=== PATIENT | female | born 1935 | race Caucasian/White ===

== ENCOUNTER → 2019-01-13 | Outpatient (CLI) | payer MEDICARE, OTHER ==
--- NOTE | 2019-01-13 15:39 | RADIOLOGY REPORT (SQ) ---
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 LIMITATIONS: None. FINDINGS: AP CHEST: Pulmonary fibrosis slightly progressed when compared to prior study. No suspici ous bony findings. LATERAL SKULL: No worrisome bone lesions. AP BOTH HUMERI: No worrisome bone lesions. TWO-VIEW LUMBAR SPINE: No worrisome bone lesions. TWO-VIEW THORACIC SPINE: No worrisome bone lesions. AP PELVIS: No worrisome bone lesions. AP BOTH FEMURS: No worrisome bone lesions. OTHER: No other significant finding. IMPRESSION: NO WORRISOME BONE LESIONS. TECHNICAL DOCUMENTATION: JOB ID: [id number] [employer]- All Rights Reserved Reading location - IP/workstation name: [email or web address]
== END ==
LOC: RAD 15:00
PROVIDERS: ATTEND Internal Medicine Hematology & Oncology
DX: D47.2 Monoclonal gammopathy (principal)
CPT/HCPCS: 77075

== ENCOUNTER 2020-05-20 10:41 | Inpatient (IN) | payer MEDICARE, OTHER ==
--- NOTE | 2020-05-20 11:20 | RADIOLOGY REPORT (SQ) ---
EXAM DESCRIPTION: HIP LEFT AP/LATERAL IMAGES COMPLETED DATE/TIME: 05/20/2020 11:06 am REASON FOR STUDY: bed 8- altered s/p fall per dr lee COMPARISON: None. NUMBER OF VIEWS: Two views. TECHNIQUE: AP pelvis and additional lateralview of the left hip. LIMITATIONS: None. FINDINGS: MINERALIZATION: Osteopenia. LEFT HIP: Subcapital fracture with mild superior migration. RIGHT HIP: No fracture or dislocation. No worrisome bone lesions. Limited views. PUBIS AND ISCHIUM: No fracture. PELVIS: No fracture. SACRUM: No fracture or dislocation. No worrisome bone lesions. LOWER LUMBAR SPINE: No fracture or dislocation. No worrisome bone lesions. No significant disc disea se. SOFT TISSUES: No findings. OTHER: No other significant finding. IMPRESSION: Subcapital fracture of the left femoral neck. Mild superior migration. TECHNICAL DOCUMENTATION: JOB ID: [id number] 2010 [employer]- All Rights Reserved Reading location - IP/workstation name: [email or web address]
--- NOTE | 2020-05-20 11:22 | RADIOLOGY REPORT (SQ) ---
EXAM DESCRIPTION: CHEST SINGLE VIEW IMAGES COMPLETED DATE/TIME: 05/20/2020 11:05 am REASON FOR STUDY: bed 8 sepsis protocol COMPARISON: None. EXAM PARAMETERS: NUMBER OF VIEWS: One view. TECHNIQUE: Single frontal radiographic view of the chest acquired. RADIATION DOSE: NA LIMITATIONS: None. FINDINGS: LUNGS AND PLEURA: Extensive cystic opacity throughout the left lung. Left lung volume los s with surgical clips in the left hilum. Patchy opacities in the right lung. MEDIASTINUM AND HILAR STRUCTURES: No masses. Contour normal. HEART AND VASCULAR STRUCTURES: Heart normal in size. Normal vasculature. BONES: No acute findings. HARDWARE: None in the chest. OTHER: No other significant finding. IMPRESSION: Extensive cystic opacities in the left chest with prior surgery in the left lung. It is unclear whether there is been in partial pneumonectomy with extensive cystic infection, or whether t his fusion is an infectious process within the pleural space. Concerning for multiple small abscesses. TECHNICAL DOCUMENTATION: JOB ID: [id number] 2010 [employer]- All Rights Reserved Reading location - IP/workstation name: [email or web address]
--- NOTE | 2020-05-20 11:44 | RADIOLOGY REPORT (SQ) ---
EXAM DESCRIPTION: CT CERVICAL SPINE WITHOUT IMAGES COMPLETED DATE/TIME: 05/20/2020 11:16 am REASON FOR STUDY: bed 8- altered s/p fall per dr lee COMPARISON: None. TECHNIQUE: Axial images acquired through the cervical spine without intravenous contrast. Images re viewed with lung, soft tissue and bone windows. Reconstructed coronal and sagittal MPR images review ed. Images stored on PACS. All CT scanners at this facility use dose modulation, iterative reconstruction, and/or weight based d osing when appropriate to reduce radiation dose to as low as reasonably achievable (ALARA). [facility]: Dose Right [facility]: CareDose [facility]: Dose Right [facility]: Teradose 4D [facility]: Smart Total [employer]ersion RADIATION DOSE: CT Rad equipment meets quality standard of care and radiation dose reduction techniq ues were employed. CTDIvol: 7.4 mGy. DLP: 159 mGy-cm. mGy. LIMITATIONS: None. FINDINGS: ALIGNMENT: Anatomic. MINERALIZATION: Normal. VERTEBRAL BODIES: No fractures or dislocation. DISCS: Degenerative disc disease C5-6. FACETS, LATERAL MASSES, POSTERIOR ELEMENTS: No fractures. No dislocation. No acute findings. HARDWARE: None in the spine. VISUALIZED RIBS: No fractures. LUNG APICES AND SOFT TISSUES: Extensive opacities. OTHER: No other significant finding. IMPRESSION: Degenerative disc disease. No acute fracture. TECHNICAL DOCUMENTATION: JOB ID: [id number] Quality ID # [id number]: Final reports with documentation of one or more dose reduction techniques (e.g., Au tomated exposure control, adjustment of the mA and/or kV according to patient size, use of iterative reconstruction technique) 2010 [employer]- All Rights Reserved Reading location - IP/workstation name: [email or web address]
--- NOTE | 2020-05-20 11:54 | RADIOLOGY REPORT (SQ) ---
EXAM DESCRIPTION: FOOT LEFT COMPLETE IMAGES COMPLETED DATE/TIME: 05/20/2020 11:35 am REASON FOR STUDY: pain COMPARISON: None. NUMBER OF VIEWS: Three views. TECHNIQUE: AP, lateral and oblique radiographic images acquired of the left foot. LIMITATIONS: None. FINDINGS: MINERALIZATION: Osteopenia. BONES: No acute fracture or dislocation. No worrisome bone lesions. JOINTS: No effusions. SOFT TISSUES: No soft tissue swelling. No foreign body. OTHER: No other significant finding. IMPRESSION: NEGATIVE STUDY OF THE LEFT FOOT. NO RADIOGRAPHIC EVIDENCE OF ACUTE INJURY. TECHNICAL DOCUMENTATION: JOB ID: [id number] 2010 [employer]- All Rights Reserved Reading location - IP/workstation name: [email or web address]
--- NOTE | 2020-05-20 11:54 | RADIOLOGY REPORT (SQ) ---
EXAM DESCRIPTION: CT HEAD WITHOUT IMAGES COMPLETED DATE/TIME: 05/20/2020 11:17 am REASON FOR STUDY: bed 8- altered s/p fall per dr lee COMPARISON: None. TECHNIQUE: Axial images acquired through the brain without intravenous contrast. Images reviewed wi th bone, brain and subdural windows. Additional sagittal and coronal reconstructions were generated. Images stored on PACS. All CT scanners at this facility use dose modulation, iterative reconstruction, and/or weight based d osing when appropriate to reduce radiation dose to as low as reasonably achievable (ALARA). [facility]: Dose Right [facility]: CareDose [facility]: Dose Right [facility]: Teradose 4D [facility]: Smart [employer] RADIATION DOSE: CT Rad equipment meets quality standard of care and radiation dose reduction techniq ues were employed. CTDIvol: 53.2 mGy. DLP: 911 mGy-cm. mGy. LIMITATIONS: None. FINDINGS: VENTRICLES: Normal size and contour. CEREBRUM: No masses. No hemorrhage. No midline shift. No evidence for acute infarction. Normal gra y/white matter differentiation. No areas of low density in the white matter. CEREBELLUM: No masses. No hemorrhage. No alteration of density. No evidence for acute infarction. EXTRAAXIAL SPACES: No fluid collections. No masses. ORBITS AND GLOBE: No intra- or extraconal masses. Normal contour of globe without masses. CALVARIUM: No fracture. PARANASAL SINUSES: No fluid or mucosal thickening. SOFT TISSUES: No mass or hematoma. OTHER: No other significant finding. IMPRESSION: NORMAL BRAIN CT WITHOUT CONTRAST. EVIDENCE OF ACUTE STROKE: NO. COMMENT: Pertinent positive or negative findings of the imaging study reported as a CRITICAL EXAM t o ER PROVIDER at11:45 on 05/20/2020. Category of Critical Exam: Stroke alert Quality ID # [id number]: Final reports with documentation of one or more dose reduction techniques (e.g., Au tomated exposure control, adjustment of the mA and/or kV according to patient size, use of iterative reconstruction technique) TECHNICAL DOCUMENTATION: JOB ID: [id number] 2010 [employer]- All Rights Reserved Reading location - IP/workstation name: [email or web address]
--- NOTE | 2020-05-20 11:57 | RADIOLOGY REPORT (SQ) ---
EXAM DESCRIPTION: FOOT RIGHT COMPLETE IMAGES COMPLETED DATE/TIME: 05/20/2020 11:35 am REASON FOR STUDY: pain COMPARISON: None. NUMBER OF VIEWS: Three views. TECHNIQUE: AP, lateral and oblique radiographic images acquired of the right foot. LIMITATIONS: None. FINDINGS: MINERALIZATION: Osteopenia. BONES: No acute fracture or dislocation. No worrisome bone lesions. JOINTS: No effusions. SOFT TISSUES: No soft tissue swelling. No foreign body. OTHER: No other significant finding. IMPRESSION: NEGATIVE STUDY OF THE RIGHT FOOT. NO RADIOGRAPHIC EVIDENCE OF ACUTE INJURY. TECHNICAL DOCUMENTATION: JOB ID: [id number] 2010 [employer]- All Rights Reserved Reading location - IP/workstation name: [email or web address]
[2020-05-20] MEDS ORDERED: FENTANYL CITRATE INJ/PF 100 MCG/2 ML AMPUL IV ONE ×2 (12:09→12:56)
[2020-05-20 12:22] LABS: VENOUS BLOOD BASE EXCESS 6.4 mmol/L; VENOUS BLOOD HCO3 33.5 mmol/L (20-32); VENOUS BLOOD PH 7.36 (7.30-7.42)
--- NOTE | 2020-05-20 12:25 | ER Document Report ---
ED General - General Chief Complaint: Hip Pain Stated Complaint: ALTERED MENTAL STATUS Time Seen by Provider: 05/20/20 11:25 Notes: HPI: 84-year-old female with past medical history as recorded including bronchiectasis with left upper lobe lobectomy in 2006 who presents today after falling out of bed. was in another room and hold the fall. Patient was slightly confused after the fall repeating questions. Both she and the are not sure if the patient hit her head. She is on no blood thinning medications. She complains of pain only to her left hip. She denies specifically any headache, neck pain, anterior posterior rib pain, shortness of breath, abdominal pain, or pain to any other extremity. Patient is followed by corner cutter, Dr. Shipley, secondary to the bronchiectasis. She had an x-ray about 2 weeks ago when he started on an unknown antibiotic. Patient is on 4 L of oxygen at home. Patient and deny any increased cough or shortness of breath with no fevers recently. ROS: See HPI All other review of systems reviewed and otherwise negative Reviewed vital signs and nursing note as charted by RN. PHYSICAL EXAM: CONSTITUTIONAL: Alert and oriented and responds appropriately to questions. Patient is answering all questions appropriately at this time HEAD: Normocephalic; atraumatic EYES: PERRL; Conjunctivae clear, sclerae non-icteric ENT: Normal nose; no rhinorrhea; moist mucous membranes; pharynx without lesions noted NECK: Supple without meningismus; non-tender; no cervical lymphadenopathy, no masses CARD: Regular rate and rhythm; no murmurs; symmetric distal pulses RESP: Normal chest excursion without splinting or tachypnea; breath sounds clear and equal bilaterally; scattered rhonchi diffusely mostly to the upper lobe of the right lung ABD/GI: Normal bowel sounds; non-distended; soft, non-tender to palpation of all 4 quadrants of the abdomen BACK: The back appears normal and is non-tender to palpation along the midline spine EXT: Patient has some shortening of the left leg with little rotation externally. Strong pulses distally. Tenderness to the left anterior hip with no obvious swelling or erythema. No tenderness to the thigh, knee, tibia/fibula, ankle, or foot. Good pulses distally SKIN: No acute lesions noted NEURO: CN 2-12 intact; 5/5 bilateral upper and lower extremity strength excluding the left lower extremity PSYCH: The patient's mood and manner are appropriate. Grooming and personal hygiene are appropriate. TRAVEL OUTSIDE OF THE [place] IN LAST 30 DAYS: No - Related Data Allergies/Adverse Reactions: codeine Allergy (Verified 05/20/20 11:45) Past Medical History - Social History Smoking Status: Never Smoker Chew tobacco use (# tins/day): No Frequency of alcohol use: None Drug Abuse: None Family History: Reviewed & Not Pertinent Patient has homicidal ideation: No Physical Exam - Vital signs Vitals: Temp 98.0 F 05/20/20 10:42 Course - Re-evaluation Re-evalutation: Given the above history and physical, patient was taken to CT scan of the head, cervical spine, and an x-ray of the left hip was performed. Obvious fracture shown so an x-ray of the chest was added. Triage ordered bilateral foot x-rays. Patient has no pain to her feet. Patient has a history of bronchiectasis. No increased cough, fevers, or shortness of breath from baseline. Patient is currently oriented x4 at this time. 05/20/20 12:24 Labs are currently pending. I did discuss the case with the orthopedist power plant operations manager. We do have pulmonology power plant operations manager at this time as well. I am waiting for laboratory values before admission. 05/20/20 13:25 Labs and imaging as recorded. Elevated white blood cell count. Patient is on steroids. I called and spoke directly to a corner cutter power plant operations manager here Dr. Guajardo. I explained the full history and physical examination, white count, and read the x-ray report. He would like me to hold on a CT scan of the chest at this time until he sees the patient. Patient will be admitted to the hospitalist service. Marketing Pr Intern is comfortable consulting here. I have already spoken directly to the orthopedic surgeon and have placed a consult as well. - Vital Signs Vital signs: Temp Pulse Resp BP Pulse Ox 98.0 F 27 H 116/49 L 98 05/20/20 11:42 05/20/20 13:01 05/20/20 13:00 05/20/20 13:00 - Laboratory Result Diagrams: 05/20/20 12:00 05/20/20 12:00 Laboratory results interpreted by me: 05/20/20 05/20/20 05/20/20 11:00 12:00 12:00 WBC 26.8 H Hgb 9.9 L Hct 31.9 L MCH 25.7 L MCHC 31.1 L RDW 17.0 H Plt Count 540 H Band Neutrophils % 2 L Lymphocytes % (Manual) 12 L Abs Neuts (Manual) 20.6 H Abs Monocytes (Manual) 2.7 H VBG HCO3 33.5 H Carbon Dioxide 32 H Anion Gap 4 L BUN 21 H AST 41 H Albumin 3.1 L Urine Ascorbic Acid 05/20/20 13:06 WBC Hgb Hct MCH MCHC RDW Plt Count Band Neutrophils % Lymphocytes % (Manual) Abs Neuts (Manual) Abs Monocytes (Manual) VBG HCO3 Carbon Dioxide Anion Gap BUN AST Albumin Urine Ascorbic Acid 40 H Discharge - Discharge Clinical Impression: Left displaced femoral neck fracture Accidental fall from bed Qualifiers: Encounter type: initial encounter Qualified Code(s): W06.XXXA - Fall from bed, initial encounter Bronchiectasis Qualifiers: Bronchiectasis type: uncomplicated Qualified Code(s): J47.9 - Bronchiectasis, uncomplicated Leukocytosis Qualifiers: Leukocytosis type: unspecified Qualified Code(s): D72.829 - Elevated white blood cell count, unspecified Condition: Fair Disposition: ADMITTED INPATIENT Admitting Provider: Bayron (Hospitalist) Unit Admitted: Medical Floor
[2020-05-20 12:34] LABS: PROTHROMBIN TIME 14.4 SEC (11.4-15.4)
[2020-05-20 12:42] LABS: ALBUMIN 3.1 g/dL (3.5-5.0); ALKALINE PHOSPHATASE 106 U/L (38-126); ASPARTATE AMINO TRANSFERASE 41 U/L (14-36); BILIRUBIN,DIRECT 0.3 mg/dL (0.0-0.4); BILIRUBIN,TOTAL 0.5 mg/dL (0.2-1.3); BLOOD UREA NITROGEN 21 mg/dL (7-20); CALCIUM 8.6 mg/dL (8.4-10.2); CARBON DIOXIDE 32 mmol/L (22-30); CHLORIDE 101 mmol/L (98-107); GLUCOSE 93 mg/dL (75-110); POTASSIUM 3.9 mmol/L (3.6-5.0); TOTAL PROTEIN 6.7 g/dL (6.3-8.2)
[2020-05-20 12:43] LABS: ANION GAP 4 (5-19)
[2020-05-20 12:47] LABS: HEMATOCRIT 31.9 % (36.0-47.0); HEMOGLOBIN 9.9 g/dL (12.0-15.5); MEAN CORPUSCULAR HEMOGLOBIN 25.7 pg (27.0-33.4); MEAN CORPUSCULAR HGB CONC 31.1 g/dL (32.0-36.0); MEAN CORPUSCULAR VOLUME 83 fl (80-97); PLATELET COUNT 540 10^3/uL (150-450); RED BLOOD COUNT 3.84 10^6/uL (3.72-5.28); WHITE BLOOD COUNT 26.8 10^3/uL (4.0-10.5)
[2020-05-20 13:14] LABS: ABSOLUTE LYMPHOCYTES# (MANUAL) 3.2 10^3/uL (0.5-4.7); ABSOLUTE MONOCYTES # (MANUAL) 2.7 10^3/uL (0.1-1.4); BAND NEUTROPHILS % (MANUAL) 2 % (3-5); BASOPHILS % (MANUAL) 0 % (0-2); EOSINOPHILS % (MANUAL) 1 % (0-6); LYMPHOCYTES % (MANUAL) 12 % (13-45); METAMYELOCYTES % (MANUAL) 1 % (0-1); MONOCYTES % (MANUAL) 10 % (3-13); SEGMENTED NEUTROPHILS % (MAN) 74 % (42-78); TOTAL CELLS COUNTED 100
[2020-05-20 13:15] LABS: ANISOCYTOSIS 1+; OVALOCYTES SLIGHT; PLATELET COMMENT ADEQUATE
[2020-05-20 13:43] LABS: APPEARANCE,URINE CLEAR; BILIRUBIN,URINE NEGATIVE (NEGATIVE); COLOR,URINE YELLOW; GLUCOSE, URINE NEGATIVE (NEGATIVE); KETONES,URINE NEGATIVE (NEGATIVE); PROTEIN,URINE NEGATIVE (NEGATIVE); UROBILINOGEN,URINE NEGATIVE mg/dL (<2.0)
[2020-05-20] MEDS ORDERED: DEXTROSE 50%-WATER 25 GM/50 ML DISP.SYRIN IV PRN ×2 (18:15)
[2020-05-20] MEDS ORDERED: GLUCAGON,HUMAN RECOMB 1 MG INJ SUBCUT PRN (18:15)
[2020-05-20] MEDS ORDERED: DEXTROSE 40% GEL 15 GM TUBE PO PRN ×2 (18:15)
[2020-05-20] MEDS ORDERED: HYDROMORPHONE HCL INJ/PF 2 MG/ML AMPULE IV PRN (19:23)
[2020-05-20] MEDS ORDERED: TRAMADOL HCL 50 MG TABLET PO PRN (19:24)
[2020-05-20] MEDS ORDERED: ACETAMINOPHEN 325 MG TABLET PO PRN (19:30)
[2020-05-20] MEDS ORDERED: OXYCODONE-ACETAMINOPHEN 5-325 MG TABLET PO PRN (19:30)
[2020-05-20] MEDS ORDERED: ONDANSETRON HCL INJ/PF 4 MG/2 ML SDV IV PRN (19:30)
[2020-05-20] MEDS ORDERED: MORPHINE SULFATE 10 MG/ML INJ IV PRN (19:30)
[2020-05-20] MEDS ORDERED: IPRATROPIUM/ALBUTEROL 0.5-2.5 MG/3 ML AMPUL NEB PRN (19:30)
[2020-05-20] MEDS ORDERED: ONDANSETRON 4 MG TAB.RAPDIS PO PRN (19:30)
--- NOTE | 2020-05-20 20:24 | EKG REPORT ---
SEVERITY:- ABNORMAL ECG - SINUS RHYTHM MULTIPLE ATRIAL PREMATURE COMPLEXES NONSPECIFIC T ABNORMALITIES, ANT-LAT LEADS : Confirmed by: Azucena Morton 20-May-2020 20:23:04
[2020-05-20] MEDS ORDERED: HYDROCORTISONE SOD SUCCINATE INJ/PF 100 MG/2 ML SDV IV PRN (21:00)
--- NOTE | 2020-05-20 21:10 | PDOC H&P ---
History of Present Illness Admission Date/PCP: 05/20/20 14:24 History of Present Illness: QUETA RAJAN is a 84 year old female with past medical history significant for chronic bronchiectasis followed by Dr. Beltran in pulmonology who presents with a 1 day history of severe left hip pain after she tried to get out of bed and tripped, falling onto her left hip and causing a left femoral neck fracture as seen on x-ray on admission. Patient was brought to ED by EMS and was evaluat ed by orthopedic surgery. They requested admission to medicine service and are planning surgery fix fractured hip on 05/21. Patient is n.p.o. after midnight. Pulmonology was consulted by ED anesthesia was also notified of the complicated nature of the patient's pulmonary disease. All services in agreement that patient can proceed with surgery as benefits of surgery outweigh the risk. Patient is on 10 mg prednisone daily for her bronchiectasis and will provide 50 mg hydrocortisone preoperatively in order to provide appropriate stress response to surgery. Past Medical History Cardiac Medical History: Reports: None Pulmonary Medical History: Reports: Other - Bronchiectasis Psychiatric Medical History: Denies: Depression Past Surgical History Past Surgical History: Reports: Cholecystectomy Social History Information Source: Patient, Emergency Med Personnel Smoking Status: Never Smoker Electronic Cigarette use?: No Frequency of Alcohol Use: None Hx Recreational Drug Use: No Drugs: None Hx Prescription Drug Abuse: No - Advance Directive Resuscitation Status: Full Code Surrogate healthcare decision maker:: Family History Family History: Reviewed & Not Pertinent, Other - Chronic ectasis Parental Family History Reviewed: Yes Children Family History Reviewed: Yes Sibling(s) Family History Reviewed.: Yes Medication/Allergy Home Medications: Albuterol Sulfate [Ventolin 0.083% Neb 2.5 mg/3 ml Ampul] 1 vial NEB BID 05/20/20 Albuterol Sulfate [Ventolin Hfa 8 gm Mdi] 1 puff IH QID 05/20/20 Amitriptyline HCl [Elavil 50 Mg Tablet] 50 mg PO QHS 05/20/20 Dronabinol [Marinol 2.5 mg Capsule] 2.5 mg PO DAILY 05/20/20 Fluticasone/Salmeterol [Advair 250-50 Diskus 14 Dose/Diskus] 2 inh IH Q12 05/20/20 Levofloxacin [Levaquin 500 mg Tablet] 500 mg PO DAILY 05/20/20 Lubiprostone [Amitiza 24 Mcg Capsule] 24 mcg PO BID 05/20/20 Omeprazole 20 mg PO DAILY 05/20/20 Prednisone 10 mg PO DAILY 05/20/20 Allergies/Adverse Reactions: codeine Allergy (Verified 05/20/20 11:45) Review of Systems All systems: reviewed and no additional remarkable complaints except as stated - Review of systems per HPI, otherwise negative Physical Exam Vital Signs: Temp Pulse Resp BP Pulse Ox 97.8 F 108 H 26 H 128/51 H 87 L 05/20/20 17:47 05/20/20 17:56 05/20/20 17:56 05/20/20 17:56 05/20/20 17:56 Intake & Output 05/19/20 05/20/20 05/21/20 06:59 06:59 06:59 Intake Total 480 Output Total 300 Balance 180 Weight 50.1 kg General appearance: PRESENT: no acute distress, well-developed, well-nourished Head exam: PRESENT: atraumatic, normocephalic Eye exam: PRESENT: conjunctiva pink Mouth exam: PRESENT: moist Respiratory exam: PRESENT: rales - Very fine rales consistent with bronchiectasis primarily on the left, unlabored. ABSENT: accessory muscle use, chest wall tenderness, crackles, rhonchi, wheezes Cardiovascular exam: PRESENT: RRR. ABSENT: diastolic murmur, rubs, systolic murmur GI/Abdominal exam: PRESENT: normal bowel sounds, soft. ABSENT: distended, guarding, mass, organolmegaly, rebound, tenderness Neurological exam: PRESENT: alert, awake, oriented to person, oriented to place, oriented to time, oriented to situation Psychiatric exam: PRESENT: appropriate affect, normal mood Skin exam: PRESENT: dry, intact, warm Results Laboratory Results: 05/20/20 12:00 05/20/20 12:00 05/20/20 05/20/20 05/20/20 11:00 11:00 12:00 WBC 26.8 H RBC 3.84 Hgb 9.9 L Hct 31.9 L MCV 83 MCH 25.7 L MCHC 31.1 L RDW 17.0 H Plt Count 540 H Seg Neutrophils % Not Reportable VBG pH 7.36 VBG pCO2 61.0 VBG HCO3 33.5 H VBG Base Excess 6.4 Sodium Potassium Chloride Carbon Dioxide Anion Gap BUN Creatinine Est GFR ( Amer) Glucose Lactic Acid 1.2 Calcium Total Bilirubin AST Alkaline Phosphatase Total Protein Albumin Urine Color Urine Appearance Urine pH Ur Specific [place] Urine Protein Urine Glucose (UA) Urine Ketones Urine Blood Urine RBC (Auto) 05/20/20 05/20/20 05/20/20 12:00 13:06 14:16 WBC RBC Hgb Hct MCV MCH MCHC RDW Plt Count Seg Neutrophils % VBG pH VBG pCO2 VBG HCO3 VBG Base Excess Sodium 137.4 Potassium 3.9 Chloride 101 Carbon Dioxide 32 H Anion Gap 4 L BUN 21 H Creatinine 0.55 Est GFR ( Amer) > 60 Glucose 93 Lactic Acid 0.9 Calcium 8.6 Total Bilirubin 0.5 AST 41 H Alkaline Phosphatase 106 Total Protein 6.7 Albumin 3.1 L Urine Color YELLOW Urine Appearance CLEAR Urine pH 6.0 Ur Specific [place] 1.020 Urine Protein NEGATIVE Urine Glucose (UA) NEGATIVE Urine Ketones NEGATIVE Urine Blood NEGATIVE Urine RBC (Auto) 1 05/20/20 17:59 WBC RBC Hgb Hct MCV MCH MCHC RDW Plt Count Seg Neutrophils % VBG pH VBG pCO2 VBG HCO3 VBG Base Excess Sodium Potassium Chloride Carbon Dioxide Anion Gap BUN Creatinine Est GFR ( Amer) Glucose Lactic Acid 1.1 Calcium Total Bilirubin AST Alkaline Phosphatase Total Protein Albumin Urine Color Urine Appearance Urine pH Ur Specific [place] Urine Protein Urine Glucose (UA) Urine Ketones Urine Blood Urine RBC (Auto) 05/20/20 11:00 Troponin I < 0.012 Impressions: Cervical Spine CT 05/20/20 00:00 IMPRESSION: Degenerative disc disease. No acute fracture. Foot X-Ray 05/20/20 00:00 IMPRESSION: NEGATIVE STUDY OF THE RIGHT FOOT. NO RADIOGRAPHIC EVIDENCE OF ACUTE INJURY. Head CT 05/20/20 00:00 IMPRESSION: NORMAL BRAIN CT WITHOUT CONTRAST. EVIDENCE OF ACUTE STROKE: NO. Hip X-Ray 05/20/20 00:00 IMPRESSION: Subcapital fracture of the left femoral neck. Mild superior migration. Chest X-Ray 05/20/20 10:45 IMPRESSION: Extensive cystic opacities in the left chest with prior surgery in the left lung. It is unclear whether there is been in partial pneumonectomy with extensive cystic infection, or whether this fusion is an infectious process within the pleural space. Concerning for multiple small abscesses. Assessment and Plan - Diagnosis (1) Left displaced femoral neck fracture Is this a current diagnosis for this admission?: Yes Plan: Orthopedic surgery consulted on admission, planning surgery on 05/21, n.p.o. at midnight Pain management DVT prophylaxis PT/OT (2) Chronic hypoxemic respiratory failure Is this a current diagnosis for this admission?: Yes Plan: Chronically on 4 L nasal cannula at home Continue with supplemental oxygen here with goal 92% or greater (3) Chronic steroid use Is this a current diagnosis for this admission?: Yes Plan: On chronic 10 mg prednisone daily Provide 50 mg hydrocortisone preoperatively for adequate stress response of surgery (4) Accidental fall from bed Qualifiers: Encounter type: initial encounter Qualified Code(s): W06.XXXA - Fall from bed, initial encounter Is this a current diagnosis for this admission?: Yes Plan: As above Multiple imaging modalities reviewed, CT chest ordered to better characterize lesions in the lung given patient has severe left-sided crackles, unclear if chronic, chest x-ray concerning for possible abscesses on the left as well CT chest without contrast (5) Bronchiectasis Qualifiers: Bronchiectasis type: uncomplicated Qualified Code(s): J47.9 - Bronchiectasis, uncomplicated Is this a current diagnosis for this admission?: Yes Plan: 4 L nasal cannula chronically Follows with Dr. Beltran in pulmonology - Time Time Spent with patient: 35 or more minutes Medications reviewed and adjusted accordingly: Yes Anticipated Discharge Disposition: Senior Living Facility Anticipated Discharge Timeframe: within 72 hours - Inpatient Certification Based on my medical assessment, after consideration of the patient's comorbidities, presenting symptoms, or acuity I expect that the services needed warrant INPATIENT care.: Yes I certify that my determination is in accordance with my understanding of Medicare's requirements for reasonable and necessary INPATIENT services [42 CFR 412.3e].: Yes Medical Necessity: Significant Comorbidiites Make Outpatient Treatment Too Risky, Need Close Monitoring Due to Risk of Patient Decompensation, Need for Pain Control, Risk of Complication if Not Cared For in Hospital, Risk of Diagnosis Which Will Require Inpatient Eval/Care/Monitoring
--- NOTE | 2020-05-20 21:11 | ADVANCED CARE ---
- Diagnosis (1) Left displaced femoral neck fracture Diagnosis Current: Yes (2) Chronic hypoxemic respiratory failure Diagnosis Current: Yes (3) Chronic steroid use Diagnosis Current: Yes (4) Accidental fall from bed Diagnosis Current: Yes (5) Bronchiectasis Diagnosis Current: Yes Attendance: Patient Resuscitation Status: Full Code Discussion: All aspects of code status discussed with patient/POA including cardioversion, chest compressions, and intubation and the patient/POA indicated they wish to be full code MPOA is designated as: Time Spent: Greater than 16 minutes
[2020-05-20] MEDS: OXYCODONE HCL IR 5 MG TABLET PO PRN (21:25)
[2020-05-20] MEDS: AMITRIPTYLINE HCL 50 MG TABLET PO SCH (21:26)
[2020-05-20] MEDS ORDERED: ALBUTEROL SULFATE HFA (90 MCG/PUFF) 8 GM MDI IH ONE (21:54)
[2020-05-20] MEDS: ALBUTEROL SULFATE HFA (90 MCG/PUFF) 8 GM MDI IH SCH (22:09)
[2020-05-20] MEDS: HYDROMORPHONE HCL INJ/PF 2 MG/ML AMPULE IV PRN (23:05)
--- NOTE | 2020-05-21 03:25 | RADIOLOGY REPORT (SQ) ---
CT CHEST WITHOUT INTRAVENOUS CONTRAST: 05/21/2020 2:20 AM CDT HISTORY: 84-year old patient with abnormal breath sounds. COMPARISON: None available TECHNIQUE: Serial 3 mm axial images were obtained from above the thoracic inlet to the upper abdomen without intravenous contrast administered. Sagittal and coronal reconstructions were also obtained and reviewed. This exam was performed according to our departmental dose-optimization program, which includes automated exposure control, adjustment of the mA and/or KV according to the patient's size and/or use of iterative reconstruction technique. FINDINGS: Both lobes of the thyroid appear homogenous with no suspicious nodules identified. The thoracic aorta is normal in size. The main pulmonary artery is enlarged and measures at least 3.1 cm in transverse dimension. The heart is mildly prominent in size. There is no evidence of a pericardial effusion. There is significant volume loss within the left hemithorax with lucencies. This may be secondary to severe fibrosis. The cardiomediastinal silhouette is deviated to the left side. Within the right hemithorax, there are peripheral groundglass airspace opacities which appear nodular. There are also consolidative airspace opacities at the posterior right upper lobe and within the superior segment of the right lower lobe. These are concerning for infection. There is bronchiectasis within the left hemithorax. No discrete pleural effusion is seen. There is suggestion of a trace left basilar pneumothorax. This could be chronic as there is some adjacent pleural thickening. The central tracheobronchial tree is patent. No suspicious lung nodules are identified. No significant supraclavicular, axillary, or mediastinal lymphadenopathy is identified. Evaluation of the upper abdomen is limited by the lack of intravenous contrast. No gross abnormality seen at the upper abdomen. The gallbladder appears to be surgically absent. Review of the bone show no evidence of any suspicious lytic or blastic lesions. IMPRESSION: There is volume loss and fibrotic change noted within the left hemithorax. A superimposed infection would be difficult to exclude. There is also bronchiectasis present. There may be a trace left basilar pneumothorax which could be chronic. There are airspace opacities within the right hemithorax which are concerning for infection. Interval follow-up is recommended to exclude an underlying neoplasm. There are some chronic interstitial changes developing within the background bilaterally, left greater than right. The main pulmonary artery is enlarged, which can be seen with pulmonary artery hypertension.
[2020-05-21] MEDS: HYDROMORPHONE HCL INJ/PF 2 MG/ML AMPULE IV PRN (06:06)
[2020-05-21] MEDS: PANTOPRAZOLE SODIUM 20 MG TABLET.DR PO SCH (06:11)
[2020-05-21] MEDS: OXYCODONE HCL IR 5 MG TABLET PO PRN ×2 (06:14→18:52)
[2020-05-21 06:17] LABS: HEMATOCRIT 33.5 % (36.0-47.0); HEMOGLOBIN 10.7 g/dL (12.0-15.5); MEAN CORPUSCULAR HEMOGLOBIN 26.6 pg (27.0-33.4); MEAN CORPUSCULAR VOLUME 83 fl (80-97); PLATELET COUNT 465 10^3/uL (150-450); RED BLOOD COUNT 4.04 10^6/uL (3.72-5.28); RED CELL DISTRIBUTION WIDTH 16.7 % (11.5-14.0)
[2020-05-21 06:46] LABS: ANION GAP 8 (5-19); BLOOD UREA NITROGEN 26 mg/dL (7-20); CARBON DIOXIDE 33 mmol/L (22-30); CHLORIDE 96 mmol/L (98-107); GLUCOSE 91 mg/dL (75-110); PHOSPHORUS 3.9 mg/dL (2.5-4.5); POTASSIUM 4.2 mmol/L (3.6-5.0)
[2020-05-21 07:08] LABS: ABSOLUTE LYMPHOCYTES# (MANUAL) 3.5 10^3/uL (0.5-4.7); ABSOLUTE MONOCYTES # (MANUAL) 5.4 10^3/uL (0.1-1.4); BAND NEUTROPHILS % (MANUAL) 1 % (3-5); BASOPHILS % (MANUAL) 0 % (0-2); EOSINOPHILS % (MANUAL) 1 % (0-6); LYMPHOCYTES % (MANUAL) 9 % (13-45); MONOCYTES % (MANUAL) 14 % (3-13); SEGMENTED NEUTROPHILS % (MAN) 75 % (42-78); TOTAL CELLS COUNTED 100
[2020-05-21 07:09] LABS: ANISOCYTOSIS 1+; HYPOCHROMASIA SLIGHT; PLATELET COMMENT INCREASED
[2020-05-21 07:10] LABS: OVALOCYTES 1+; SCHISTOCYTES SLIGHT
[2020-05-21 07:18] LABS: WHITE BLOOD COUNT 38.6 10^3/uL (4.0-10.5)
[2020-05-21] MEDS: ALBUTEROL SULFATE 0.083% NEB 2.5 MG/3 ML AMPUL NEB SCH ×2 (07:38→21:03)
[2020-05-21] MEDS ORDERED: CEFTRIAXONE 2 GM/D5W RTU 2 GM/50 ML RTUPB IV ONE (08:54)
[2020-05-21 09:02] LABS: ARTERIAL BLOOD BASE EXCESS 4.2 mmol/L; ARTERIAL BLOOD PCO2 49.7 mmHg (35-45); ARTERIAL BLOOD PO2 60.7 mmHg (80-100); ARTERIAL BLOOD TOTAL CO2 31.5 mmol/L (21-25)
[2020-05-21 09:06] LABS: ARTERIAL BLOOD FIO2 10L
[2020-05-21] MEDS: PREDNISONE 10 MG TABLET PO SCH (09:06)
[2020-05-21] MEDS: LUBIPROSTONE 24 MCG CAPSULE PO SCH ×2 (09:06→17:08)
[2020-05-21] MEDS: DRONABINOL 2.5 MG CAPSULE PO SCH (09:06)
[2020-05-21] MEDS: ALBUTEROL SULFATE HFA (90 MCG/PUFF) 8 GM MDI IH SCH ×4 (09:12→21:40)
[2020-05-21] MEDS: FLUTICASONE/VILANTEROL 200-25 MCG/DOSE IH SCH (09:12)
[2020-05-21] MEDS ORDERED: DOCUSATE SODIUM 100 MG/10 ML UDC PO SCH (10:00)
[2020-05-21] MEDS ORDERED: AZITHROMYCIN INJ 500 MG VIAL IV SCH (10:00)
[2020-05-21] MEDS ORDERED: AZITHROMYCIN 500 MG in DEXTROSE 5%-WATER 250 ML IV SCH (11:00)
--- NOTE | 2020-05-21 12:07 | PDOC CONSULTATION ---
Consultation Consult Date: 05/21/20 Provider Consulted: ADRIENNE JEREZ History of Present Illness Admission Date/PCP: 05/20/20 14:24 Patient complains of: Shortness of breath History of Present Illness: QUETA RAJAN is a 84 year old female Who presents after left hip fracture. Her states that he heard her fall in the bedroom. Her beside the bed. It is unclear whether she tripped or became lightheaded upon standing from the lying position. In any event she was brought to the emergency room where a left ulna neck fracture was noted. She has a long and significant history of bronchiectasis. She is chronically followed by Dr. Shipley in [place]. According to the she intermittently takes antibiotics as well as prednisone with exacerbations of her bronchiectasis. She also has had a left lower lobe lobectomy many years ago for a nonfunctioning left lower lung felt secondary to chronic bronchiectasis. The is unsure if she has had a recent pseudomonal infection. She denies any recent fevers or chills. She was recently started on both prednisone and Levaquin because of a recent exacerbation of her bronchiectasis. This was primarily characterized by increasing cough and sputum production. Past Medical History Past Medical History: Patient denies a significant history of cigarette smoking. She does have a longstanding history of bronchiectasis as noted above. She did recently have increasing cough and mucus production. Apparently her mother also had significant pulmonary dysfunction and was not a cigarette smoker. Cardiac Medical History: Reports: None Pulmonary Medical History: Reports: Other - Bronchiectasis Psychiatric Medical History: Denies: Depression Past Surgical History Past Surgical History: The patient has had a prior left lower lobectomy. Past Surgical History: Reports: Cholecystectomy Social History Smoking Status: Never Smoker - The patient is a non-smoker and has no occupational exposure. Frequency of Alcohol Use: None Hx Recreational Drug Use: No Drugs: None Hx Prescription Drug Abuse: No - Advance Directive Resuscitation Status: Full Code Family History Family History: Reviewed & Not Pertinent, Other - Chronic ectasis Parental Family History Reviewed: Yes - The patient's mother had a significant history of pulmonary disease felt to Children Family History Reviewed: No Sibling(s) Family History Reviewed.: No Medication/Allergy Home Medications: Albuterol Sulfate [Ventolin 0.083% Neb 2.5 mg/3 ml Ampul] 1 vial NEB BID 05/20/20 Albuterol Sulfate [Ventolin Hfa 8 gm Mdi] 1 puff IH QID 05/20/20 Amitriptyline HCl [Elavil 50 Mg Tablet] 50 mg PO QHS 05/20/20 Dronabinol [Marinol 2.5 mg Capsule] 2.5 mg PO DAILY 05/20/20 Fluticasone/Salmeterol [Advair 250-50 Diskus 14 Dose/Diskus] 2 inh IH Q12 05/20/20 Levofloxacin [Levaquin 500 mg Tablet] 500 mg PO DAILY 05/20/20 Lubiprostone [Amitiza 24 Mcg Capsule] 24 mcg PO BID 05/20/20 Omeprazole 20 mg PO DAILY 05/20/20 Prednisone 10 mg PO DAILY 05/20/20 Allergies/Adverse Reactions: codeine Allergy (Verified 05/20/20 11:45) Review of Systems All systems: reviewed and no additional remarkable complaints except as stated - As noted above the patient recently noted cough and mucus production. Remainder is negative. Physical Exam Vital Signs: Temp Pulse Resp BP Pulse Ox 97.9 F 110 H 20 111/44 L 94 05/21/20 07:35 05/21/20 07:39 05/21/20 07:39 05/21/20 07:26 05/21/20 07:39 Intake & Output 05/20/20 05/21/20 05/22/20 06:59 06:59 06:59 Intake Total 480 Output Total 500 Balance -20 Weight 46.2 kg Exam: On exam today she was seen in bed lying flat with high flow oxygen by mask. She appeared to be pale. Conjunctiva were pale. Extraocular movements appear to be intact. Neck was supple without adenopathy or bruits. Lung exam revealed diffuse rhonchi more prominent on the left otherwise negative. Heart exam revealed a tachycardia without obvious murmur. Abdominal exam was nondistended and nontender. Extremities were not examined because of her hip fracture. Neurologic examination was difficult because of recent narcotic medication given to the patient for pain relief. Results Laboratory Results: 05/21/20 05:17 05/21/20 05:17 05/20/20 05/20/20 05/20/20 11:00 11:00 12:00 WBC 26.8 H RBC 3.84 Hgb 9.9 L Hct 31.9 L MCV 83 MCH 25.7 L MCHC 31.1 L RDW 17.0 H Plt Count 540 H Seg Neutrophils % Not Reportable Carbonic Acid HCO3/H2CO3 Ratio ABG pH ABG pCO2 ABG pO2 ABG HCO3 ABG O2 Saturation ABG Base Excess VBG pH 7.36 VBG pCO2 61.0 VBG HCO3 33.5 H VBG Base Excess 6.4 FiO2 Sodium Potassium Chloride Carbon Dioxide Anion Gap BUN Creatinine Est GFR ( Amer) Glucose Lactic Acid 1.2 Calcium Phosphorus Magnesium Total Bilirubin AST Alkaline Phosphatase Total Protein Albumin Urine Color Urine Appearance Urine pH Ur Specific [place] Urine Protein Urine Glucose (UA) Urine Ketones Urine Blood Urine RBC (Auto) 05/20/20 05/20/20 05/20/20 12:00 13:06 14:16 WBC RBC Hgb Hct MCV MCH MCHC RDW Plt Count Seg Neutrophils % Carbonic Acid HCO3/H2CO3 Ratio ABG pH ABG pCO2 ABG pO2 ABG HCO3 ABG O2 Saturation ABG Base Excess VBG pH VBG pCO2 VBG HCO3 VBG Base Excess FiO2 Sodium 137.4 Potassium 3.9 Chloride 101 Carbon Dioxide 32 H Anion Gap 4 L BUN 21 H Creatinine 0.55 Est GFR ( Amer) > 60 Glucose 93 Lactic Acid 0.9 Calcium 8.6 Phosphorus Magnesium Total Bilirubin 0.5 AST 41 H Alkaline Phosphatase 106 Total Protein 6.7 Albumin 3.1 L Urine Color YELLOW Urine Appearance CLEAR Urine pH 6.0 Ur Specific [place] 1.020 Urine Protein NEGATIVE Urine Glucose (UA) NEGATIVE Urine Ketones NEGATIVE Urine Blood NEGATIVE Urine RBC (Auto) 1 05/20/20 05/21/20 05/21/20 17:59 05:17 05:17 WBC 38.6 H* RBC 4.04 Hgb 10.7 L Hct 33.5 L MCV 83 MCH 26.6 L MCHC 32.0 RDW 16.7 H Plt Count 465 H Seg Neutrophils % Not Reportable Carbonic Acid HCO3/H2CO3 Ratio ABG pH ABG pCO2 ABG pO2 ABG HCO3 ABG O2 Saturation ABG Base Excess VBG pH VBG pCO2 VBG HCO3 VBG Base Excess FiO2 Sodium 137.1 Potassium 4.2 Chloride 96 L Carbon Dioxide 33 H Anion Gap 8 BUN 26 H Creatinine 0.65 Est GFR ( Amer) > 60 Glucose 91 Lactic Acid 1.1 Calcium 9.0 Phosphorus 3.9 Magnesium 1.9 Total Bilirubin AST Alkaline Phosphatase Total Protein Albumin Urine Color Urine Appearance Urine pH Ur Specific [place] Urine Protein Urine Glucose (UA) Urine Ketones Urine Blood Urine RBC (Auto) 05/21/20 08:40 WBC RBC Hgb Hct MCV MCH MCHC RDW Plt Count Seg Neutrophils % Carbonic Acid 1.50 H HCO3/H2CO3 Ratio 20:1 ABG pH 7.40 ABG pCO2 49.7 H ABG pO2 60.7 L ABG HCO3 30.0 H ABG O2 Saturation 91.0 L ABG Base Excess 4.2 VBG pH VBG pCO2 VBG HCO3 VBG Base Excess FiO2 10L Sodium Potassium Chloride Carbon Dioxide Anion Gap BUN Creatinine Est GFR ( Amer) Glucose Lactic Acid Calcium Phosphorus Magnesium Total Bilirubin AST Alkaline Phosphatase Total Protein Albumin Urine Color Urine Appearance Urine pH Ur Specific [place] Urine Protein Urine Glucose (UA) Urine Ketones Urine Blood Urine RBC (Auto) 05/20/20 11:00 Troponin I < 0.012 Impressions: Cervical Spine CT 05/20/20 00:00 IMPRESSION: Degenerative disc disease. No acute fracture. Chest CT 05/20/20 00:00 IMPRESSION: There is volume loss and fibrotic change noted within the left hemithorax. A superimposed infection would be difficult to exclude. There is also bronchiectasis present. There may be a trace left basilar pneumothorax which could be chronic. There are airspace opacities within the right hemithorax which are concerning for infection. Interval follow-up is recommended to exclude an underlying neoplasm. There are some chronic interstitial changes developing within the background bilaterally, left greater than right. The main pulmonary artery is enlarged, which can be seen with pulmonary artery hypertension. Foot X-Ray 05/20/20 00:00 IMPRESSION: NEGATIVE STUDY OF THE RIGHT FOOT. NO RADIOGRAPHIC EVIDENCE OF ACUTE INJURY. Head CT 05/20/20 00:00 IMPRESSION: NORMAL BRAIN CT WITHOUT CONTRAST. EVIDENCE OF ACUTE STROKE: NO. Hip X-Ray 05/20/20 00:00 IMPRESSION: Subcapital fracture of the left femoral neck. Mild superior migration. Chest X-Ray 05/20/20 10:45 IMPRESSION: Extensive cystic opacities in the left chest with prior surgery in the left lung. It is unclear whether there is been in partial pneumonectomy with extensive cystic infection, or whether this fusion is an infectious process within the pleural space. Concerning for multiple small abscesses. Status: Image reviewed by - I did have a chance to review her chest x-ray and CT scan from 05/20/2020. She has extensive bronchiectatic changes throughout all lungs most prominently on the left. Assessment & Plan - Diagnosis (1) Bronchiectasis Qualifiers: Bronchiectasis type: uncomplicated Qualified Code(s): J47.9 - Bronchiectasis, uncomplicated Is this a current diagnosis for this admission?: Yes (2) Chronic hypoxemic respiratory failure Is this a current diagnosis for this admission?: Yes (3) Chronic steroid use Is this a current diagnosis for this admission?: Yes (4) Left displaced femoral neck fracture Is this a current diagnosis for this admission?: Yes (5) Leukocytosis Qualifiers: Leukocytosis type: unspecified Qualified Code(s): D72.829 - Elevated white blood cell count, unspecified - Plan Summary Plan Summary: This patient presents with a left hip fracture following a fall at home. She has significant pulmonary disease manifest both on her x-ray physical exam and lab findings. Her arterial blood gas suggests chronic CO2 retention. Just to briefly review her arterial blood gas her pH was 7.40 PCO2 roughly 50 and PO2 roughly 60. Her bicarb level was 33 on lab testing. Again this suggests mild chronic CO2 retention. I am concerned about her underlying pulmonary function vis--vis operative intervention. However failure to repair her left hip fracture is a virtual sentence in this pulmonary cripple. I am concerned about her recent oral steroid use as well as for chronic pulmonary infection. She is certainly at risk for developing drug-resistant organisms as well as pseudomonas on a chronic basis. We will need to culture her sputum to evaluate. I think it appropriate to cover for Pseudomonas in the perioperative period. I also think judicious use of steroids is indicated. She may need a brief course of mechanical ventilation postoperatively. Overall prognosis is obviously guarded given her advanced pulmonary disease. We will follow with you during this patient's hospitalization.
[2020-05-21] MEDS ORDERED: THROMBIN (BOVINE) 5000 UNIT EPITAXIS KIT ONE (12:32)
[2020-05-21] MEDS ORDERED: BUPIVACAINE INJ/PF LIPOSOME/PF 266 MG/20 ML SDV ONE (12:32)
[2020-05-21] MEDS ORDERED: BACITRACIN INJ 50,000 UNIT VIAL ONE (12:32)
[2020-05-21] MEDS ORDERED: ONDANSETRON HCL INJ/PF 4 MG/2 ML SDV ONE (12:41)
[2020-05-21] MEDS ORDERED: PROPOFOL INJ 200 MG/20 ML VIAL IV ONE (12:41)
[2020-05-21] MEDS ORDERED: MIDAZOLAM 2 MG/2 ML INJ ONE (12:41)
[2020-05-21] MEDS ORDERED: TRANEXAMIC ACID INJ/PF 1,000 MG/10 ML SDV ONE ×2 (12:41→13:03)
[2020-05-21] MEDS ORDERED: FENTANYL CITRATE INJ/PF 100 MCG/2 ML AMPUL ONE (12:41)
[2020-05-21] MEDS ORDERED: EPHEDRINE SULFATE INJ 50 MG/1 ML AMPULE ONE (12:42)
--- NOTE | 2020-05-21 12:53 | PDOC CONSULTATION ---
Consultation Consult Date: 05/21/20 Attending physician:: JA TIRADO Provider Consulted: PRASHANT WHITEHEAD Consult reason:: Left displaced midcervical femoral neck fracture History of Present Illness Admission Date/PCP: 05/20/20 14:24 Patient complains of: Left hip pain following low-energy fall at home History of Present Illness: QUETA RAJAN is a 84 year old female with a significant pulmonary history of bronchiectasis status post lower lobe lobectomy. She is accompanied by her . She had presented to the emergency department complaining of left hip pain and inability to ambulate following a fall getting out of bed. Evaluation revealed a displaced mid cervical femoral neck fracture of the left hip. Past Medical History Cardiac Medical History: Reports: None Pulmonary Medical History: Reports: Other - Bronchiectasis Psychiatric Medical History: Denies: Depression Past Surgical History Past Surgical History: Reports: Cholecystectomy, Other - Lung lobectomy for bronchiectasis Social History Smoking Status: Never Smoker - The patient is a non-smoker and has no occupational exposure. Electronic Cigarette use?: No Frequency of Alcohol Use: None Hx Recreational Drug Use: No Drugs: None Hx Prescription Drug Abuse: No - Advance Directive Resuscitation Status: Full Code Family History Family History: Reviewed & Not Pertinent, Other - Chronic ectasis Parental Family History Reviewed: Yes Children Family History Reviewed: No Sibling(s) Family History Reviewed.: No Medication/Allergy Home Medications: Albuterol Sulfate [Ventolin 0.083% Neb 2.5 mg/3 ml Ampul] 1 vial NEB BID 05/20/20 Albuterol Sulfate [Ventolin Hfa 8 gm Mdi] 1 puff IH QID 05/20/20 Amitriptyline HCl [Elavil 50 Mg Tablet] 50 mg PO QHS 05/20/20 Dronabinol [Marinol 2.5 mg Capsule] 2.5 mg PO DAILY 05/20/20 Fluticasone/Salmeterol [Advair 250-50 Diskus 14 Dose/Diskus] 2 inh IH Q12 05/20/20 Levofloxacin [Levaquin 500 mg Tablet] 500 mg PO DAILY 05/20/20 Lubiprostone [Amitiza 24 Mcg Capsule] 24 mcg PO BID 05/20/20 Omeprazole 20 mg PO DAILY 05/20/20 Prednisone 10 mg PO DAILY 05/20/20 Allergies/Adverse Reactions: codeine Allergy (Verified 05/20/20 11:45) Review of Systems ROS unobtainable: Other - As per HPI Physical Exam Vital Signs: Temp Pulse Resp BP Pulse Ox 98.0 F 104 H 32 H 113/42 L 92 05/21/20 11:10 05/21/20 11:10 05/21/20 11:10 05/21/20 11:10 05/21/20 11:10 Intake & Output 05/20/20 05/21/20 05/22/20 06:59 06:59 06:59 Intake Total 480 300 Output Total 500 Balance -20 300 Weight 46.2 kg General appearance: PRESENT: no acute distress, thin Head exam: PRESENT: atraumatic, normocephalic Mouth exam: PRESENT: moist, tongue midline Neck exam: PRESENT: full ROM Respiratory exam: PRESENT: accessory muscle use, decreased breath sounds, tachypnea Cardiovascular exam: PRESENT: RRR. ABSENT: diastolic murmur, rubs, systolic murmur GI/Abdominal exam: PRESENT: normal bowel sounds, soft. ABSENT: distended, guarding, mass, organolmegaly, rebound, tenderness Rectal exam: PRESENT: deferred Musculoskeletal exam: PRESENT: other - The left leg is shortened and externally rotated. The patient is able to dorsiflex and plantarflex the ankle. 2+ dorsalis pedis and posterior tibial pulses. Sensation is intact to touch. Results Laboratory Results: 05/21/20 05:17 05/21/20 05:17 05/20/20 05/20/20 05/20/20 12:00 13:06 14:16 WBC 26.8 H RBC 3.84 Hgb 9.9 L Hct 31.9 L MCV 83 MCH 25.7 L MCHC 31.1 L RDW 17.0 H Plt Count 540 H Seg Neutrophils % Not Reportable Carbonic Acid HCO3/H2CO3 Ratio ABG pH ABG pCO2 ABG pO2 ABG HCO3 ABG O2 Saturation ABG Base Excess FiO2 Sodium Potassium Chloride Carbon Dioxide Anion Gap BUN Creatinine Est GFR ( Amer) Glucose Lactic Acid 0.9 Calcium Phosphorus Magnesium Urine Color YELLOW Urine Appearance CLEAR Urine pH 6.0 Ur Specific [place] 1.020 Urine Protein NEGATIVE Urine Glucose (UA) NEGATIVE Urine Ketones NEGATIVE Urine Blood NEGATIVE Urine RBC (Auto) 1 05/20/20 05/21/20 05/21/20 17:59 05:17 05:17 WBC 38.6 H* RBC 4.04 Hgb 10.7 L Hct 33.5 L MCV 83 MCH 26.6 L MCHC 32.0 RDW 16.7 H Plt Count 465 H Seg Neutrophils % Not Reportable Carbonic Acid HCO3/H2CO3 Ratio ABG pH ABG pCO2 ABG pO2 ABG HCO3 ABG O2 Saturation ABG Base Excess FiO2 Sodium 137.1 Potassium 4.2 Chloride 96 L Carbon Dioxide 33 H Anion Gap 8 BUN 26 H Creatinine 0.65 Est GFR ( Amer) > 60 Glucose 91 Lactic Acid 1.1 Calcium 9.0 Phosphorus 3.9 Magnesium 1.9 Urine Color Urine Appearance Urine pH Ur Specific [place] Urine Protein Urine Glucose (UA) Urine Ketones Urine Blood Urine RBC (Auto) 05/21/20 08:40 WBC RBC Hgb Hct MCV MCH MCHC RDW Plt Count Seg Neutrophils % Carbonic Acid 1.50 H HCO3/H2CO3 Ratio 20:1 ABG pH 7.40 ABG pCO2 49.7 H ABG pO2 60.7 L ABG HCO3 30.0 H ABG O2 Saturation 91.0 L ABG Base Excess 4.2 FiO2 10L Sodium Potassium Chloride Carbon Dioxide Anion Gap BUN Creatinine Est GFR ( Amer) Glucose Lactic Acid Calcium Phosphorus Magnesium Urine Color Urine Appearance Urine pH Ur Specific [place] Urine Protein Urine Glucose (UA) Urine Ketones Urine Blood Urine RBC (Auto) 05/20/20 11:00 Troponin I < 0.012 Impressions: Cervical Spine CT 05/20/20 00:00 IMPRESSION: Degenerative disc disease. No acute fracture. Chest CT 05/20/20 00:00 IMPRESSION: There is volume loss and fibrotic change noted within the left hemithorax. A superimposed infection would be difficult to exclude. There is also bronchiectasis present. There may be a trace left basilar pneumothorax which could be chronic. There are airspace opacities within the right hemithorax which are concerning for infection. Interval follow-up is recommended to exclude an underlying neoplasm. There are some chronic interstitial changes developing within the background bilaterally, left greater than right. The main pulmonary artery is enlarged, which can be seen with pulmonary artery hypertension. Foot X-Ray 05/20/20 00:00 IMPRESSION: NEGATIVE STUDY OF THE RIGHT FOOT. NO RADIOGRAPHIC EVIDENCE OF ACUTE INJURY. Head CT 05/20/20 00:00 IMPRESSION: NORMAL BRAIN CT WITHOUT CONTRAST. EVIDENCE OF ACUTE STROKE: NO. Hip X-Ray 05/20/20 00:00 IMPRESSION: Subcapital fracture of the left femoral neck. Mild superior migration. Chest X-Ray 05/20/20 10:45 IMPRESSION: Extensive cystic opacities in the left chest with prior surgery in the left lung. It is unclear whether there is been in partial pneumonectomy with extensive cystic infection, or whether this fusion is an infectious process within the pleural space. Concerning for multiple small abscesses. Assessment & Plan - Diagnosis (1) Chronic hypoxemic respiratory failure Is this a current diagnosis for this admission?: Yes (2) Chronic steroid use Is this a current diagnosis for this admission?: Yes (3) Left displaced femoral neck fracture Is this a current diagnosis for this admission?: Yes - Time Time Spent: 30 to 50 Minutes Anticipated discharge: SNF Anticipated DC Timeframe: when bed available - Plan Summary Plan Summary: The patient is a pleasant 84-year-old woman accompanied by her . She has a significant pulmonary history of bronchiectasis requiring chronic steroid use. She sustained a low-energy fall resulting in a displaced fracture of the left femoral neck. The patient has been optimized by the hospitalist as well as a infrastructure engineer. I have recommended left hip hemiarthroplasty. Risk, benefits, and alternatives were discussed with the patient and her . Risks include the risk of with anesthesia, the risk of infection, the risk of injury to nerves and vessels, the risk of fracture, the risk of dislocation, and the possible need for additional surgical procedures. We also discussed the potential need for a blood transfusion. An opportunity for questions was provided. All questions were answered to the patient's satisfaction. The patient expressed understanding and wishes to proceed with surgery.
[2020-05-21] MEDS ORDERED: VANCOMYCIN HCL INJ 1000 MG VIAL ONE (13:04)
[2020-05-21] MEDS ORDERED: CEFAZOLIN INJ 1 GM VIAL ONE (13:04)
[2020-05-21 14:20] LABS: PATH REVIEW PATHOLOGIST REVIEWED
[2020-05-21] MEDS ORDERED: FENTANYL CITRATE INJ/PF 100 MCG/2 ML AMPUL IV PRN (14:32)
[2020-05-21] MEDS ORDERED: DIPHENHYDRAMINE HCL 50 MG/ML VIAL IV PRN (14:32)
[2020-05-21] MEDS ORDERED: PROMETHAZINE HCL INJ 25 MG/1 ML VIAL IV PRN (14:32)
--- NOTE | 2020-05-21 15:21 | Operative Report ---
Operative Report DATE OF SURGERY: 05/21/20 PREOPERATIVE DIAGNOSIS: Left hip displaced midcervical femoral neck fracture POSTOPERATIVE DIAGNOSIS: Left hip displaced midcervical femoral neck fracture OPERATION: Left hip hemiarthroplasty for fracture SURGEON: PRASHNAT WHITEHEAD ANESTHESIA: Spinal COMPLICATIONS: None ESTIMATED BLOOD LOSS: 100 cc INTRAOPERATIVE FINDINGS: Same PROCEDURE: Indications for procedure: The patient is an 84-year-old woman who sustained a displaced midcervical fracture of the left femoral neck as a result of a low- energy fall at home. Description of procedure following the induction of a spinal anesthetic and 2 g of Ancef, the patient was positioned lateral on a pegboard. All bony promine nces were padded. Axillary roll was placed. The left lower extremity was sterilely prepped with ChloraPrep and draped in sterile fashion. Posterior approach to the left hip was performed. A sharp incision was performed through skin with Bovie electrocautery through the subcutaneous tissue. Fascia was identified and incised with the Bovie. Trialing retractor was placed. The external rotators were taken off the bone with Bovie electrocautery. The femoral neck fracture was identified and femoral head removed. The femoral head was sized and found to be 47 mm. Femoral neck cut was made. Sequential broaching from a size 1 to a size 5 was performed trialing of implants was performed with a 5 stem -4 mm neck and 47 mm head. Excellent stability was found. The trial implants were removed. Copious irrigation was then performed with pulsatile lavage. The final implants were then implanted. The hip was taken through a full range of motion and found to be quite stable. Additional pulsatile lavage was then used. The external rotators were then repaired back through the greater trochanter using #1 Ethibond suture. 1 g of vancomycin powder was then implanted deep to fascia. The fascia was then closed with #1 PDS barbed suture. The subcutaneous tissue was approximated with 2-0 Vicryl. The subcutaneous tissue closure was performed with 2-0 PDS barbed suture. The skin was reapproximated with 3-0 Monocryl barbed suture. The skin was then overlaid with a surgical glue closure. The patient tolerated procedure well without complications and was brought recovery room in stable condition. Postoperatively she remained on 24 hours of antibiotics. Implants: [employer] Accolade 2 #5 stem [employer] [employer] Unitrax -4 mm offset neck [employer] Unitrax 47 mm head
--- NOTE | 2020-05-21 16:15 | RADIOLOGY REPORT (SQ) ---
EXAM DESCRIPTION: HIP LEFT AP/LATERAL IMAGES COMPLETED DATE/TIME: 05/21/2020 4:05 pm REASON FOR STUDY: POST OP COMPARISON: 05/20/2020 NUMBER OF VIEWS: Two view(s). TECHNIQUE: Digital radiographic images of the left hip post-procedure. LIMITATIONS: None. FINDINGS: BONES: No worrisome or unexpected findings post-procedure. DEVICE: Total hip replacement. Components of the device in appropriate location. SOFT TISSUES: No worrisome findings. Expected postoperative soft tissue changes. IMPRESSION: SATISFACTORY POSTOPERATIVE LEFT HIP. TECHNICAL DOCUMENTATION: JOB ID: [id number] 2010 [employer]- All Rights Reserved Reading location - IP/workstation name: [email or web address]
[2020-05-21] MEDS ORDERED: NORMAL SALINE 1000 ML 1,000 ML IV PRN (16:18)
--- NOTE | 2020-05-21 18:16 | PDOC PROGRESS REPORT ---
Subjective Subjective:: QUETA RAJAN is a 84 year old female with past medical history significant for chronic bronchiectasis followed by Dr. Beltran in pulmonology who presents with a 1 day history of severe left hip pain after she tried to get out of bed and tripped, falling onto her left hip and causing a left femoral neck fracture as seen on x-ray on admission. Patient was brought to ED by EMS and was evaluated by orthopedic surgery. They requested admission to medicine service and are planning surgery fix fractured hip on 05/21. Patient is n.p.o. after midnight. Pulmonology was consulted by ED anesthesia was also notified of the complicated nature of the patient's pulmonary disease. All services in agreement that patient can proceed with surgery as benefits of surgery outweigh the risk. Patient is on 10 mg prednisone daily for her bronchiectasis and will provide 50 mg hydrocortisone preoperatively in order to provide appropriate stress response to surgery. 05/21/2020 Patient seen and examined today with at bedside. I had a discussion with cyber transport systems specialist Dr. Guajardo today who recommended changing the patient's antibiotics for pseudomonal coverage as she has been on antipseudomonal antibiotics frequently in the past and was most recently put on Levaquin for likely developing pneumonia. He plans to reach out to the patient's cyber transport systems specialist Dr. Beltran to get some more information for us. Patient is go ing OR for hip surgery today to repair her fracture. I discussed with the patient and her that I believe she is a high risk surgical candidate due to her lung disease although leaving a hip fracture unfixed poses a large mortality risk in itself. They both agreed that the benefits outweighed the risks and they wanted to proceed with surgery. WBC markedly elevated today although patient is continued on chronic steroids and I have ordered a dose of 50 mg hydrocortisone to be given perioperatively. Reason For Visit: LEFT HIP FRACTURE Physical Exam Vital Signs: Temp Pulse Resp BP Pulse Ox 98.0 F 128 H 25 H 101/45 L 92 05/21/20 16:20 05/21/20 16:20 05/21/20 16:20 05/21/20 16:20 05/21/20 16:20 Intake & Output 05/20/20 05/21/20 05/22/20 06:59 06:59 06:59 Intake Total 480 1050 Output Total 500 325 Balance -20 725 Weight 46.2 kg 46.2 kg Exam: General appearance: PRESENT: no acute distress, well-developed, well-nourished, at bedside Head exam: PRESENT: atraumatic, normocephalic Eye exam: PRESENT: conjunctiva pink Mouth exam: PRESENT: moist Respiratory exam: PRESENT: rales - Very fine rales consistent with bronchiectasis primarily on the left, unlabored. ABSENT: accessory muscle use, chest wall tenderness, crackles, rhonchi, wheezes Cardiovascular exam: PRESENT: RRR. ABSENT: diastolic murmur, rubs, systolic murmur GI/Abdominal exam: PRESENT: normal bowel sounds, soft. ABSENT: distended, guarding, mass, organolmegaly, rebound, tenderness Neurological exam: PRESENT: alert, awake, oriented to person, oriented to place, oriented to time, oriented to situation Psychiatric exam: PRESENT: appropriate affect, normal mood Skin exam: PRESENT: dry, intact, warm Results Laboratory Results: 05/21/20 05:17 05/21/20 05:17 05/20/20 05/21/20 05/21/20 17:59 05:17 05:17 WBC 38.6 H* RBC 4.04 Hgb 10.7 L Hct 33.5 L MCV 83 MCH 26.6 L MCHC 32.0 RDW 16.7 H Plt Count 465 H Seg Neutrophils % Not Reportable Carbonic Acid HCO3/H2CO3 Ratio ABG pH ABG pCO2 ABG pO2 ABG HCO3 ABG O2 Saturation ABG Base Excess FiO2 Sodium 137.1 Potassium 4.2 Chloride 96 L Carbon Dioxide 33 H Anion Gap 8 BUN 26 H Creatinine 0.65 Est GFR ( Amer) > 60 Glucose 91 Lactic Acid 1.1 Calcium 9.0 Phosphorus 3.9 Magnesium 1.9 05/21/20 08:40 WBC RBC Hgb Hct MCV MCH MCHC RDW Plt Count Seg Neutrophils % Carbonic Acid 1.50 H HCO3/H2CO3 Ratio 20:1 ABG pH 7.40 ABG pCO2 49.7 H ABG pO2 60.7 L ABG HCO3 30.0 H ABG O2 Saturation 91.0 L ABG Base Excess 4.2 FiO2 10L Sodium Potassium Chloride Carbon Dioxide Anion Gap BUN Creatinine Est GFR ( Amer) Glucose Lactic Acid Calcium Phosphorus Magnesium 05/20/20 11:00 Troponin I < 0.012 Impressions: Cervical Spine CT 05/20/20 00:00 IMPRESSION: Degenerative disc disease. No acute fracture. Chest CT 05/20/20 00:00 IMPRESSION: There is volume loss and fibrotic change noted within the left hemithorax. A superimposed infection would be difficult to exclude. There is also bronchiectasis present. There may be a trace left basilar pneumothorax which could be chronic. There are airspace opacities within the right hemithorax which are concerning for infection. Interval follow-up is recommended to exclude an underlying neoplasm. There are some chronic interstitial changes developing within the background bilaterally, left greater than right. The main pulmonary artery is enlarged, which can be seen with pulmonary artery hypertension. Foot X-Ray 05/20/20 00:00 IMPRESSION: NEGATIVE STUDY OF THE RIGHT FOOT. NO RADIOGRAPHIC EVIDENCE OF ACUTE INJURY. Head CT 05/20/20 00:00 IMPRESSION: NORMAL BRAIN CT WITHOUT CONTRAST. EVIDENCE OF ACUTE STROKE: NO. Chest X-Ray 05/20/20 10:45 IMPRESSION: Extensive cystic opacities in the left chest with prior surgery in the left lung. It is unclear whether there is been in partial pneumonectomy with extensive cystic infection, or whether this fusion is an infectious process within the pleural space. Concerning for multiple small abscesses. Hip X-Ray 05/21/20 15:45 IMPRESSION: SATISFACTORY POSTOPERATIVE LEFT HIP. Assessment and Plan - Diagnosis (1) Left displaced femoral neck fracture Is this a current diagnosis for this admission?: Yes Plan: Orthopedic surgery consulted on admission, surgery on 05/21, n.p.o. at midnight Pain management DVT prophylaxis PT/OT (2) Chronic hypoxemic respiratory failure Is this a current diagnosis for this admission?: Yes Plan: Chronically on 4 L nasal cannula at home Continue with supplemental oxygen here with goal 92% or greater (3) Chronic steroid use Is this a current diagnosis for this admission?: Yes (4) Accidental fall from bed Qualifiers: Encounter type: initial encounter Qualified Code(s): W06.XXXA - Fall from bed, initial encounter Is this a current diagnosis for this admission?: Yes (5) Bronchiectasis Qualifiers: Bronchiectasis type: uncomplicated Qualified Code(s): J47.9 - Bronchiectasis, uncomplicated Is this a current diagnosis for this admission?: Yes Plan: 4 L nasal cannula chronically Follows with Dr. Beltran in pulmonology Dr. Casandra and pulmonology consulted here, recommended switching antibiotics to Levaquin Patient has recurrent pneumonia likely pseudomonal (6) Recurrent bacterial pneumonia Is this a current diagnosis for this admission?: Yes Plan: Findings on CT chest concerning for pneumonia though picture is very unclear due to severe chronic lung damage Pulmonology following Started on Levaquin - Time Time Spent with patient: 35 or more minutes Medications reviewed and adjusted accordingly: Yes Anticipated Discharge Disposition: Long-Term Facility Anticipated Discharge Timeframe: within 72 hours - Inpatient Certification Based on my medical assessment, after consideration of the patient's c omorbidities, presenting symptoms, or acuity I expect that the services needed warrant INPATIENT care.: Yes I certify that my determination is in accordance with my understanding of Medicare's requirements for reasonable and necessary INPATIENT services [42 CFR 412.3e].: Yes Medical Necessity: Significant Comorbidiites Make Outpatient Treatment Too Risky, Need Close Monitoring Due to Risk of Patient Decompensation, Need for IV Antibiotics, Need for Surgery, Risk of Complication if Not Cared For in Hospital, Risk of Diagnosis Which Will Require Inpatient Eval/Care/Monitoring
[2020-05-21] MEDS: HEPARIN SOD (PORCINE) 5,000 UNIT/ML 1 ML VIAL SUBCUT SCH ×2 (18:52→21:38)
[2020-05-21] MEDS: LEVOFLOXACIN 750 MG TABLET PO SCH (21:29)
[2020-05-21] MEDS ORDERED: LEVOFLOXACIN 750 MG TABLET PO ONE (21:30)
[2020-05-21] MEDS: AMITRIPTYLINE HCL 50 MG TABLET PO SCH (21:38)
[2020-05-21] MEDS ORDERED: CEFAZOLIN SODIUM 2 GM in DEXTROSE 5%-WATER 100 ML IV SCH (22:00)
[2020-05-22] MEDS: HEPARIN SOD (PORCINE) 5,000 UNIT/ML 1 ML VIAL SUBCUT SCH ×2 (06:20→13:27)
[2020-05-22] MEDS: PANTOPRAZOLE SODIUM 20 MG TABLET.DR PO SCH (06:20)
[2020-05-22] MEDS: ALBUTEROL SULFATE 0.083% NEB 2.5 MG/3 ML AMPUL NEB SCH ×2 (07:56→20:57)
[2020-05-22] MEDS ORDERED: TRANEXAMIC ACID INJ/PF 1,000 MG/10 ML SDV IV SCH (08:00)
[2020-05-22 08:30] LABS: HEMOGLOBIN 9.4 g/dL (12.0-15.5); MEAN CORPUSCULAR HEMOGLOBIN 26.6 pg (27.0-33.4); MEAN CORPUSCULAR HGB CONC 32.3 g/dL (32.0-36.0); MEAN CORPUSCULAR VOLUME 82 fl (80-97); PLATELET COUNT 377 10^3/uL (150-450); RED BLOOD COUNT 3.52 10^6/uL (3.72-5.28); RED CELL DISTRIBUTION WIDTH 16.9 % (11.5-14.0)
[2020-05-22 08:50] LABS: ANION GAP 9 (5-19); BLOOD UREA NITROGEN 34 mg/dL (7-20); CALCIUM 8.6 mg/dL (8.4-10.2); CARBON DIOXIDE 29 mmol/L (22-30); CHLORIDE 96 mmol/L (98-107); GLUCOSE 87 mg/dL (75-110)
[2020-05-22] MEDS: DOCUSATE SODIUM 100 MG CAPSULE PO SCH ×2 (10:09→10:34)
[2020-05-22] MEDS: PREDNISONE 10 MG TABLET PO SCH (10:09)
[2020-05-22] MEDS: DRONABINOL 2.5 MG CAPSULE PO SCH ×2 (10:09→10:46)
[2020-05-22] MEDS: LUBIPROSTONE 24 MCG CAPSULE PO SCH ×3 (10:09→17:01)
[2020-05-22] MEDS: ASPIRIN 325 MG TABLET PO SCH (10:09)
[2020-05-22] MEDS: LEVOFLOXACIN 750 MG TABLET PO SCH ×2 (10:11→10:45)
[2020-05-22] MEDS: FLUTICASONE/VILANTEROL 200-25 MCG/DOSE IH SCH (10:11)
[2020-05-22] MEDS: ALBUTEROL SULFATE HFA (90 MCG/PUFF) 8 GM MDI IH SCH ×4 (10:11→22:10)
[2020-05-22 11:43] LABS: ARTERIAL BLOOD BASE EXCESS 4.4 mmol/L; ARTERIAL BLOOD H2CO3 1.36 mmol/L (1.05-1.35); ARTERIAL BLOOD HCO3 29.3 mmol/L (20-24); ARTERIAL BLOOD O2 SATURATION 96.9 % (94-98); ARTERIAL BLOOD PCO2 45.2 mmHg (35-45); ARTERIAL BLOOD PH 7.43 (7.35-7.45); ARTERIAL BLOOD PO2 88.2 mmHg (80-100); ARTERIAL BLOOD TOTAL CO2 30.6 mmol/L (21-25)
[2020-05-22 11:44] LABS: ARTERIAL BLOOD FIO2 10L
--- NOTE | 2020-05-22 11:44 | PDOC PROGRESS REPORT ---
Subjective Progress Note for:: 05/22/20 Subjective:: In the interim this patient has had left hip surgery. He was weaned and extubated without difficulty. He is now back on the floor on higher flow O2 but basically stable. Some cough and mucus production. Discussed her condition at length with her who is in the room with her at this time. Does not have worsening cough mucus or phlegm production at this time. Reason For Visit: LEFT HIP FRACTURE Physical Exam Vital Signs: Temp Pulse Resp BP Pulse Ox 97.8 F 112 H 20 139/59 H 92 05/22/20 07:00 05/22/20 07:57 05/22/20 07:57 05/22/20 07:00 05/22/20 07:57 Intake & Output 05/21/20 05/22/20 05/23/20 06:59 06:59 06:59 Intake Total 480 2050 Output Total 500 525 Balance -20 1525 Weight 46.2 kg 46 kg Exam: Exam today is largely unchanged from that of her initial evaluation. She continues to have diffuse rhonchi throughout all lung jane. Results Laboratory Results: 05/22/20 08:15 05/22/20 08:15 05/22/20 05/22/20 08:15 08:15 WBC 29.0 H RBC 3.52 L Hgb 9.4 L Hct 29.0 L MCV 82 MCH 26.6 L MCHC 32.3 RDW 16.9 H Plt Count 377 Sodium 133.5 L Potassium 4.0 Chloride 96 L Carbon Dioxide 29 Anion Gap 9 BUN 34 H Creatinine 0.57 Est GFR ( Amer) > 60 Glucose 87 Calcium 8.6 05/20/20 11:00 Troponin I < 0.012 Impressions: Cervical Spine CT 05/20/20 00:00 IMPRESSION: Degenerative disc disease. No acute fracture. Chest CT 05/20/20 00:00 IMPRESSION: There is volume loss and fibrotic change noted within the left hemithorax. A superimposed infection would be difficult to exclude. There is also bronchiectasis present. There may be a trace left basilar pneumothorax which could be chronic. There are airspace opacities within the right hemithorax which are concerning for infection. Interval follow-up is recommended to exclude an underlying neoplasm. There are some chronic interstitial changes developing within the background bilaterally, left greater than right. The main pulmonary artery is enlarged, which can be seen with pulmonary artery hypertension. Foot X-Ray 05/20/20 00:00 IMPRESSION: NEGATIVE STUDY OF THE RIGHT FOOT. NO RADIOGRAPHIC EVIDENCE OF ACUTE INJURY. Head CT 05/20/20 00:00 IMPRESSION: NORMAL BRAIN CT WITHOUT CONTRAST. EVIDENCE OF ACUTE STROKE: NO. Chest X-Ray 05/20/20 10:45 IMPRESSION: Extensive cystic opacities in the left chest with prior surgery in the left lung. It is unclear whether there is been in partial pneumonectomy with extensive cystic infection, or whether this fusion is an infectious process within the pleural space. Concerning for multiple small abscesses. Hip X-Ray 05/21/20 15:45 IMPRESSION: SATISFACTORY POSTOPERATIVE LEFT HIP. Status: Image reviewed by me - I have again reviewed her series of chest films. She does have impressive bronchiectasis. Assessment & Plan - Diagnosis (1) Bronchiectasis Qualifiers: Bronchiectasis type: uncomplicated Qualified Code(s): J47.9 - Bronchiectasis, uncomplicated Is this a current diagnosis for this admission?: Yes (2) Chronic hypoxemic respiratory failure Is this a current diagnosis for this admission?: Yes (3) Chronic steroid use Is this a current diagnosis for this admission?: Yes (4) Left displaced femoral neck fracture Is this a current diagnosis for this admission?: Yes (5) Leukocytosis Qualifiers: Leukocytosis type: unspecified Qualified Code(s): D72.829 - Elevated white blood cell count, unspecified Is this a current diagnosis for this admission?: Yes - Time Time Spent with patient: 35 or more minutes - Plan Summary Plan Summary: Overall this patient is done surprisingly well given the degree of pulmonary impairment. She continues to require relatively high flows of oxygen to maintain her saturations I believe that she is appropriately responding to medical care. I would certainly continue broad-spectrum antibiotics at this time. She is certainly at risk for postoperative pulmonary complications most notably pneumonia. Would also continue stress doses of steroids for this time period as she has recently been on bolus and tapering doses of prednisone in the recent past. Again her prognosis is quite guarded given her extensive lung disease but she seems to have tolerated her surgery well. We will follow with you and make suggestions as indicated.
[2020-05-22] MEDS: LEVOFLOXACIN 750 MG/D5W RTU 750 MG/150 ML RTUPB IV SCH (13:28)
[2020-05-22] MEDS ORDERED: PREDNISONE 20 MG TABLET PO ONE (14:39)
[2020-05-22] MEDS ORDERED: METHYLPREDNISOLONE INJ 40 MG/1 ML SDV IV ONE (14:43)
[2020-05-22] MEDS ORDERED: GUAIFENESIN SYRP 200 MG/10 ML UDC PO PRN (14:51)
--- NOTE | 2020-05-22 15:15 | PDOC PROGRESS REPORT ---
Subjective Progress Note for:: 05/22/20 Subjective:: Patient is an 84-year-old female with a past medical history of chronic respiratory failure with hypoxia secondary to bronchiectasis, Steroid dependence, and GERD who was admitted 05/20/2020 for a left femoral neck fracture following mechanical fall at home. Patient was seen on morning rounds. She is found sitting up to the recliner. Currently on supplemental oxygen via simple mask at 10 L/min. She has 3-4 word tachypnea. She reports that she is feeling somewhat better today and actually asks when she will be discharged home. She reports that her pain is adequately well controlled. She further denies fever, chills, chest pain, palpitations, orthopnea, cough, abdominal pain, nausea vomiting and diarrhea. Afebrile x24 hours, T-max 101.2/48 hours. She has no other questions or concerns at this time. Nursing witnessed likely aspiration event while passing a.m. medications. Patient began coughing violently after swallowing prednisone. She de-satted into the low 80s and required several minutes to recover. Per patient, she typically stands, at home, to improve ability to swallow. Reason For Visit: LEFT HIP FRACTURE Physical Exam Vital Signs: Temp Pulse Resp BP Pulse Ox 97.5 F 117 H 23 H 112/57 L 97 05/22/20 11:00 05/22/20 11:00 05/22/20 11:00 05/22/20 11:00 05/22/20 11:00 Intake & Output 05/21/20 05/22/20 05/23/20 06:59 06:59 06:59 Intake Total 480 2050 118 Output Total 500 525 Balance -20 1525 118 Weight 46.2 kg 46 kg General appearance: PRESENT: mild distress, thin, well-developed Head exam: PRESENT: atraumatic, normocephalic Eye exam: PRESENT: conjunctiva pink, EOMI, PERRLA. ABSENT: scleral icterus Mouth exam: PRESENT: moist, tongue midline Respiratory exam: PRESENT: decreased breath sounds - right lung jane, prolonged expiratory phas, rhonchi - throughout, symmetrical, tachypnea, other - simple mask. ABSENT: rales, wheezes Cardiovascular exam: PRESENT: RRR, tachycardia. ABSENT: diastolic murmur, rubs, systolic murmur Pulses: PRESENT: normal dorsalis pedis pul Vascular exam: PRESENT: normal capillary refill Gentrourinary exam: PRESENT: indwelling catheter Extremities exam: PRESENT: full ROM. ABSENT: calf tenderness, clubbing, pedal edema Neurological exam: PRESENT: alert, awake, oriented to person, oriented to place, oriented to time, oriented to situation, CN II-XII grossly intact. ABSENT: motor sensory deficit Psychiatric exam: PRESENT: appropriate affect, normal mood. ABSENT: homicidal ideation, suicidal ideation Skin exam: PRESENT: dry, warm. ABSENT: cyanosis, rash Results Laboratory Results: 05/22/20 08:15 05/22/20 08:15 05/22/20 05/22/20 05/22/20 08:15 08:15 11:30 WBC 29.0 H RBC 3.52 L Hgb 9.4 L Hct 29.0 L MCV 82 MCH 26.6 L MCHC 32.3 RDW 16.9 H Plt Count 377 Carbonic Acid 1.36 H HCO3/H2CO3 Ratio 21:1 ABG pH 7.43 ABG pCO2 45.2 H ABG pO2 88.2 ABG HCO3 29.3 H ABG O2 Saturation 96.9 ABG Base Excess 4.4 FiO2 10L Sodium 133.5 L Potassium 4.0 Chloride 96 L Carbon Dioxide 29 Anion Gap 9 BUN 34 H Creatinine 0.57 Est GFR ( Amer) > 60 Glucose 87 Calcium 8.6 05/20/20 11:00 Troponin I < 0.012 Impressions: Cervical Spine CT 05/20/20 00:00 IMPRESSION: Degenerative disc disease. No acute fracture. Chest CT 05/20/20 00:00 IMPRESSION: There is volume loss and fibrotic change noted within the left hemithorax. A superimposed infection would be difficult to exclude. There is also bronchiectasis present. There may be a trace left basilar pneumothorax which could be chronic. There are airspace opacities within the right hemithorax which are concerning for infection. Interval follow-up is recommended to exclude an underlying neoplasm. There are some chronic interstitial changes developing within the background bilaterally, left greater than right. The main pulmonary artery is enlarged, which can be seen with pulmonary artery hypertension. Foot X-Ray 05/20/20 00:00 IMPRESSION: NEGATIVE STUDY OF THE RIGHT FOOT. NO RADIOGRAPHIC EVIDENCE OF ACUTE INJURY. Head CT 05/20/20 00:00 IMPRESSION: NORMAL BRAIN CT WITHOUT CONTRAST. EVIDENCE OF ACUTE STROKE: NO. Chest X-Ray 05/20/20 10:45 IMPRESSION: Extensive cystic opacities in the left chest with prior surgery in the left lung. It is unclear whether there is been in partial pneumonectomy with extensive cystic infection, or whether this fusion is an infectious process within the pleural space. Concerning for multiple small abscesses. Hip X-Ray 05/21/20 15:45 IMPRESSION: SATISFACTORY POSTOPERATIVE LEFT HIP. Assessment and Plan - Diagnosis (1) Left displaced femoral neck fracture Is this a current diagnosis for this admission?: Yes Plan: POD #1 Left hip hemiarthroplasty by Dr. Holm Orthopedic surgery consulted Post op DVT prophylaxis per orthopedic; aspirin 325 mg daily Analgesics as needed. PT/OT Discharge planning consulted. (2) Recurrent bacterial pneumonia Is this a current diagnosis for this admission?: Yes Plan: Findings on CT chest concerning for pneumonia though picture is very unclear due to severe chronic lung damage Blood cultures have no growth at 48 hours Sputum cultures pending Patient is provided supplemental oxygen as needed maintain saturations greater than 89%. Pulmonology is consulted. Spoke with Dr. Guajardo today; recommends continuing Levaquin and starting Zyvox. Scheduled and as needed nebulizer treatments. She is placed on Robitussin as needed. Pulmonary toilet is encouraged with incentive spirometer, flutter valve, early ambulation. (3) Bronchiectasis Qualifiers: Bronchiectasis type: uncomplicated Qualified Code(s): J47.9 - Bronchiectasis, uncomplicated Is this a current diagnosis for this admission?: Yes Plan: 4 L nasal cannula chronically Follows with Dr. Beltran in pulmonology Dr. Guajardo and pulmonology consulted here Evaluation and management as above. (4) Chronic hypoxemic respiratory failure Is this a current diagnosis for this admission?: Yes Plan: Chronically on 4 L nasal cannula at home Continue with supplemental oxygen here with goal 92% or greater ABG today is slightly improved. Currently requiring simple mask at 10 L/min. Remaining management as above. (5) Dysphagia Qualifiers: Dysphagia type: unspecified Qualified Code(s): R13.10 - Dysphagia, unspecified Is this a current diagnosis for this admission?: Yes Plan: Nursing witnessed likely aspiration event during morning med Pass. Per patient, she typically needs to stand upright for medications. She admits that eating is also easier if she is standing. Possibly related to respiratory distress in setting of chronic respiratory failure. N.p.o. with the exception of ice chips and sips of water. Medications via IV route if possible. Speech therapy consulted. Aspiration precautions (6) Chronic steroid use Is this a current diagnosis for this admission?: Yes Plan: On chronic 10 mg prednisone daily Provide 50 mg hydrocortisone preoperatively for adequate stress response of surgery Discussed with pulmonology today; recommends continuing stress dose steroids. As the patient is n.p.o., will provide Solu-Medrol 40 mg daily. (7) Leukocytosis Qualifiers: Leukocytosis type: unspecified Qualified Code(s): D72.829 - Elevated white blood cell count, unspecified Is this a current diagnosis for this admission?: Yes Plan: Multifactorial secondary to Hip fx w/ repair, pneumonia, and stress dose steroids. Cultures and antibiotics as above. Follow CBC (8) Accidental fall from bed Qualifiers: Encounter type: initial encounter Qualified Code(s): W06.XXXA - Fall from bed, initial encounter Is this a current diagnosis for this admission?: Yes Plan: As above - Time Time Spent with patient: 35 or more minutes Medications reviewed and adjusted accordingly: Yes Anticipated Discharge Disposition: Detention Facility Anticipated Discharge Timeframe: undetermined
--- NOTE | 2020-05-22 19:15 | PDOC PROGRESS REPORT ---
Subjective Progress Note for:: 05/22/20 Subjective:: Patient complaining of minimal discomfort. Patient states that symptoms are improved compared with prior to hemiarthroplasty. Reason For Visit: LEFT HIP FRACTURE POD # 1 s/p left hip hemiarthroplasty Physical Exam Vital Signs: Temp Pulse Resp BP Pulse Ox 97.4 F 114 H 24 H 125/52 L 100 05/22/20 15:00 05/22/20 15:00 05/22/20 15:00 05/22/20 15:00 05/22/20 15:00 Intake & Output 05/21/20 05/22/20 05/23/20 06:59 06:59 06:59 Intake Total 480 2050 118 Output Total 500 525 Balance -20 1525 118 Weight 46.2 kg 46 kg Musculoskeletal exam: PRESENT: other - The surgical incision is intact. There is no evidence of infection. Patient is able to DF and PF the foot. Sensation is intact. Results Laboratory Results: 05/22/20 08:15 05/22/20 08:15 05/22/20 05/22/20 05/22/20 08:15 08:15 11:30 WBC 29.0 H RBC 3.52 L Hgb 9.4 L Hct 29.0 L MCV 82 MCH 26.6 L MCHC 32.3 RDW 16.9 H Plt Count 377 Carbonic Acid 1.36 H HCO3/H2CO3 Ratio 21:1 ABG pH 7.43 ABG pCO2 45.2 H ABG pO2 88.2 ABG HCO3 29.3 H ABG O2 Saturation 96.9 ABG Base Excess 4.4 FiO2 10L Sodium 133.5 L Potassium 4.0 Chloride 96 L Carbon Dioxide 29 Anion Gap 9 BUN 34 H Creatinine 0.57 Est GFR ( Amer) > 60 Glucose 87 Calcium 8.6 05/20/20 11:00 Troponin I < 0.012 Impressions: Cervical Spine CT 05/20/20 00:00 IMPRESSION: Degenerative disc disease. No acute fracture. Chest CT 05/20/20 00:00 IMPRESSION: There is volume loss and fibrotic change noted within the left hemithorax. A superimposed infection would be difficult to exclude. There is also bronchiectasis present. There may be a trace left basilar pneumothorax which could be chronic. There are airspace opacities within the right hemithorax which are concerning for infection. Interval follow-up is recommended to exclude an underlying neoplasm. There are some chronic interstitial changes developing within the background bilaterally, left greater than right. The main pulmonary artery is enlarged, which can be seen with pulmonary artery hypertension. Foot X-Ray 05/20/20 00:00 IMPRESSION: NEGATIVE STUDY OF THE RIGHT FOOT. NO RADIOGRAPHIC EVIDENCE OF ACUTE INJURY. Head CT 05/20/20 00:00 IMPRESSION: NORMAL BRAIN CT WITHOUT CONTRAST. EVIDENCE OF ACUTE STROKE: NO. Chest X-Ray 05/20/20 10:45 IMPRESSION: Extensive cystic opacities in the left chest with prior surgery in the left lung. It is unclear whether there is been in partial pneumonectomy with extensive cystic infection, or whether this fusion is an infectious process within the pleural space. Concerning for multiple small abscesses. Hip X-Ray 05/21/20 15:45 IMPRESSION: SATISFACTORY POSTOPERATIVE LEFT HIP. Assessment & Plan - Diagnosis (1) Chronic hypoxemic respiratory failure Is this a current diagnosis for this admission?: Yes (2) Chronic steroid use Is this a current diagnosis for this admission?: Yes (3) Left displaced femoral neck fracture Is this a current diagnosis for this admission?: Yes - Time Critical Time spent with patient: Less than 15 minutes Anticipated Discharge Disposition: Jail Facility Anticipated Discharge Timeframe: when bed available - Plan Summary Plan Summary: POD # 1 s/p hemiarthroplasty PT WBAT with assist device. Posterior hip precautions. SCD/ ASA for DVT prophylaxis Wound closure performed with surgical glue construct. Patient may shower when clinically feasible Patient stable for discharge from Orthopedic standpoint
[2020-05-22] MEDS: LINEZOLID 600 MG/300 ML RTUPB IV SCH (22:10)
[2020-05-23] MEDS: PANTOPRAZOLE SODIUM 20 MG TABLET.DR PO SCH (05:17)
[2020-05-23 06:01] LABS: HEMATOCRIT 27.7 % (36.0-47.0); HEMOGLOBIN 9.1 g/dL (12.0-15.5); MEAN CORPUSCULAR HEMOGLOBIN 26.6 pg (27.0-33.4); MEAN CORPUSCULAR HGB CONC 32.8 g/dL (32.0-36.0); MEAN CORPUSCULAR VOLUME 81 fl (80-97); PLATELET COUNT 391 10^3/uL (150-450); RED BLOOD COUNT 3.41 10^6/uL (3.72-5.28); RED CELL DISTRIBUTION WIDTH 16.6 % (11.5-14.0); WHITE BLOOD COUNT 16.1 10^3/uL (4.0-10.5)
[2020-05-23 06:20] LABS: ABSOLUTE LYMPHOCYTES# (MANUAL) 1.4 10^3/uL (0.5-4.7); ABSOLUTE MONOCYTES # (MANUAL) 0.3 10^3/uL (0.1-1.4); BASOPHILS % (MANUAL) 0 % (0-2); EOSINOPHILS % (MANUAL) 0 % (0-6); LYMPHOCYTES % (MANUAL) 9 % (13-45); MONOCYTES % (MANUAL) 2 % (3-13); SEGMENTED NEUTROPHILS % (MAN) 89 % (42-78); TOTAL CELLS COUNTED 100
[2020-05-23 06:21] LABS: ANION GAP 7 (5-19); ANISOCYTOSIS 1+; BLOOD UREA NITROGEN 25 mg/dL (7-20); CALCIUM 9.1 mg/dL (8.4-10.2); CARBON DIOXIDE 31 mmol/L (22-30); CHLORIDE 97 mmol/L (98-107); GLUCOSE 118 mg/dL (75-110); OVALOCYTES SLIGHT; PLATELET COMMENT ADEQUATE; POIKILOCYTOSIS SLIGHT; POTASSIUM 4.4 mmol/L (3.6-5.0)
[2020-05-23] MEDS: ALBUTEROL SULFATE 0.083% NEB 2.5 MG/3 ML AMPUL NEB SCH ×2 (08:04→20:27)
[2020-05-23] MEDS: LUBIPROSTONE 24 MCG CAPSULE PO SCH ×2 (09:44→17:53)
[2020-05-23] MEDS: DRONABINOL 2.5 MG CAPSULE PO SCH (09:44)
[2020-05-23] MEDS: ASPIRIN 325 MG TABLET PO SCH (09:44)
[2020-05-23] MEDS: METHYLPREDNISOLONE INJ 40 MG/1 ML SDV IV SCH (09:44)
[2020-05-23] MEDS: LEVOFLOXACIN 750 MG/D5W RTU 750 MG/150 ML RTUPB IV SCH (09:45)
[2020-05-23] MEDS: DOCUSATE SODIUM 100 MG CAPSULE PO SCH (09:47)
[2020-05-23] MEDS ORDERED: PREDNISONE 20 MG TABLET PO SCH (10:00)
[2020-05-23] MEDS: LINEZOLID 600 MG/300 ML RTUPB IV SCH ×2 (11:03→23:24)
--- NOTE | 2020-05-23 13:28 | PDOC PROGRESS REPORT ---
Subjective Progress Note for:: 05/23/20 Subjective:: Patient is an 84-year-old female with a past medical history of chronic respiratory failure with hypoxia secondary to bronchiectasis, Steroid dependence, and GERD who was admitted 05/20/2020 for a left femoral neck fracture following mechanical fall at home. Patient was seen on morning rounds. She is found sitting up to the recliner. Currently on supplemental oxygen via [place] at 6L/min. Utilizes 4lpm at home. Decreased tachypnea. She reports that her pain is adequately well controlled. Wishes she had better tolerated physical therapy (discontinued early r/t h ypoxia) She denies fever, chills, chest pain, palpitations, orthopnea, cough, abdominal pain, nausea vomiting and diarrhea. Afebrile x48 hrs She has no other questions or concerns at this time. No questions per nursing. Reason For Visit: LEFT HIP FRACTURE Physical Exam Vital Signs: Temp Pulse Resp BP Pulse Ox 97.6 F 115 H 23 H 127/54 H 100 05/23/20 12:00 05/23/20 12:00 05/23/20 12:00 05/23/20 12:00 05/23/20 12:00 Intake & Output 05/22/20 05/23/20 05/24/20 06:59 06:59 06:59 Intake Total 2050 568 Output Total 525 300 Balance 1525 268 Weight 46 kg 48 kg General appearance: PRESENT: no acute distress, hard of hearing, thin, well-deve loped Head exam: PRESENT: atraumatic, normocephalic Eye exam: PRESENT: conjunctiva pink, EOMI, PERRLA. ABSENT: scleral icterus Mouth exam: PRESENT: moist, tongue midline Respiratory exam: PRESENT: decreased breath sounds - R>L, prolonged expiratory phas, rhonchi, symmetrical, unlabored, other - Omental oxygen by nasal cannula. ABSENT: rales, wheezes Cardiovascular exam: PRESENT: RRR, tachycardia - HR 100-110. ABSENT: diastolic murmur, rubs, systolic murmur Pulses: PRESENT: normal dorsalis pedis pul Vascular exam: PRESENT: normal capillary refill Gentrourinary exam: PRESENT: indwelling catheter Extremities exam: ABSENT: calf tenderness, clubbing, pedal edema Neurological exam: PRESENT: alert, awake, oriented to person, oriented to place, oriented to time, oriented to situation, CN II-XII grossly intact. ABSENT: motor sensory deficit Psychiatric exam: PRESENT: appropriate affect, normal mood. ABSENT: homicidal ideation, suicidal ideation Skin exam: PRESENT: dry, intact, warm. ABSENT: cyanosis, rash Results Laboratory Results: 05/23/20 05:12 05/23/20 05:12 05/23/20 05/23/20 05:12 05:12 WBC 16.1 H RBC 3.41 L Hgb 9.1 L Hct 27.7 L MCV 81 MCH 26.6 L MCHC 32.8 RDW 16.6 H Plt Count 391 Seg Neutrophils % Not Reportable Sodium 135.0 L Potassium 4.4 Chloride 97 L Carbon Dioxide 31 H Anion Gap 7 BUN 25 H Creatinine 0.50 L Est GFR ( Amer) > 60 Glucose 118 H Calcium 9.1 05/20/20 11:00 Troponin I < 0.012 Impressions: Cervical Spine CT 05/20/20 00:00 IMPRESSION: Degenerative disc disease. No acute fracture. Chest CT 05/20/20 00:00 IMPRESSION: There is volume loss and fibrotic change noted within the left hemithorax. A superimposed infection would be difficult to exclude. There is also bronchiectasis present. There may be a trace left basilar pneumothorax which could be chronic. There are airspace opacities within the right hemithorax which are concerning for infection. Interval follow-up is recommended to exclude an underlying neoplasm. There are some chronic interstitial changes developing within the background bilaterally, left greater than right. The main pulmonary artery is enlarged, which can be seen with pulmonary artery hypertension. Foot X-Ray 05/20/20 00:00 IMPRESSION: NEGATIVE STUDY OF THE RIGHT FOOT. NO RADIOGRAPHIC EVIDENCE OF ACUTE INJURY. Head CT 05/20/20 00:00 IMPRESSION: NORMAL BRAIN CT WITHOUT CONTRAST. EVIDENCE OF ACUTE STROKE: NO. Chest X-Ray 05/20/20 10:45 IMPRESSION: Extensive cystic opacities in the left chest with prior surgery in the left lung. It is unclear whether there is been in partial pneumonectomy with extensive cystic infection, or whether this fusion is an infectious process within the pleural space. Concerning for multiple small abscesses. Hip X-Ray 05/21/20 15:45 IMPRESSION: SATISFACTORY POSTOPERATIVE LEFT HIP. Assessment and Plan - Diagnosis (1) Left displaced femoral neck fracture Is this a current diagnosis for this admission?: Yes Plan: POD #2 Left hip hemiarthroplasty by Dr. Holm Orthopedic surgery consulted; cleared for discharge from orthopedic perspective. Post op DVT prophylaxis per orthopedic; aspirin 325 mg daily Analgesics as needed. PT/OT Discharge planning consulted. (2) Recurrent bacterial pneumonia Is this a current diagnosis for this admission?: Yes Plan: Findings on CT chest concerning for pneumonia though picture is very unclear due to severe chronic lung damage Blood cultures have no growth at 72 hours Sputum cultures pending Patient is provided supplemental oxygen as needed maintain saturations greater than 89%. Pulmonology is consulted. Continue Levaquin; day #3. Continue Zyvox; day #2 Scheduled and as needed nebulizer treatments. Continue Robitussin as needed. Pulmonary toilet is encouraged with incentive spirometer, flutter valve, early ambulation. (3) Bronchiectasis Qualifiers: Bronchiectasis type: uncomplicated Qualified Code(s): J47.9 - Bronchiectasis, uncomplicated Is this a current diagnosis for this admission?: Yes Plan: 4 L nasal cannula chronically Follows with Dr. Beltran in pulmonology Dr. Guajardo and pulmonology consulted here Evaluation and management as above. (4) Chronic hypoxemic respiratory failure Is this a current diagnosis for this admission?: Yes Plan: Chronically on 4 L nasal cannula at home Continue with supplemental oxygen here with goal 92% or greater ABG yesterday is slightly improved. Evaluation and management as above. (5) Dysphagia Qualifiers: Dysphagia type: unspecified Qualified Code(s): R13.10 - Dysphagia, unsp ecified Is this a current diagnosis for this admission?: Yes Plan: Speech therapy consulted aspiration risk is secondary to respiratory distress and increased work of breathing. Recommends mechanical soft diet to decrease energy expenditure. Small bites/meals. Aspiration precautions. (6) Chronic steroid use Is this a current diagnosis for this admission?: Yes Plan: On chronic 10 mg prednisone daily Provide 50 mg hydrocortisone preoperatively for adequate stress response of surgery Discussed with pulmonology; recommends continuing stress dose steroids. Solu-Medrol 40 mg daily. (7) Leukocytosis Qualifiers: Leukocytosis type: unspecified Qualified Code(s): D72.829 - Elevated white blood cell count, unspecified Is this a current diagnosis for this admission?: Yes Plan: Trending down. Multifactorial secondary to Hip fx w/ repair, pneumonia, and stress dose steroids. Cultures and antibiotics as above. Follow CBC (8) Accidental fall from bed Qualifiers: Encounter type: initial encounter Qualified Code(s): W06.XXXA - Fall from bed, initial encounter Is this a current diagnosis for this admission?: Yes Plan: As above - Time Time Spent with patient: 35 or more minutes Medications reviewed and adjusted accordingly: Yes Anticipated Discharge Disposition: Long-Term Care Facility - For physical and pulmonary rehabilitation Anticipated Discharge Timeframe: within 48 hours
--- NOTE | 2020-05-23 14:03 | PDOC PROGRESS REPORT ---
Subjective Progress Note for:: 05/23/20 Subjective:: In the interim the patient has continued to improve. She has less cough mucus phlegm and sputum production. She is now on nasal cannula oxygen. She notes her appetite is slowly returning. She denies any difficulty sleeping at night or laying down in bed in particular she denies any breathlessness with these activities. Reason For Visit: LEFT HIP FRACTURE Physical Exam Vital Signs: Temp Pulse Resp BP Pulse Ox 97.6 F 115 H 23 H 127/54 H 100 05/23/20 12:00 05/23/20 12:00 05/23/20 12:00 05/23/20 12:00 05/23/20 12:00 Intake & Output 05/22/20 05/23/20 05/24/20 06:59 06:59 06:59 Intake Total 2050 568 Output Total 525 300 Balance 1525 268 Weight 46 kg 48 kg Exam: Exam today is largely unchanged. She continues to have diffuse rales and rhonchi in both lung jane. Results Laboratory Results: 05/23/20 05:12 05/23/20 05:12 05/23/20 05/23/20 05:12 05:12 WBC 16.1 H RBC 3.41 L Hgb 9.1 L Hct 27.7 L MCV 81 MCH 26.6 L MCHC 32.8 RDW 16.6 H Plt Count 391 Seg Neutrophils % Not Reportable Sodium 135.0 L Potassium 4.4 Chloride 97 L Carbon Dioxide 31 H Anion Gap 7 BUN 25 H Creatinine 0.50 L Est GFR ( Amer) > 60 Glucose 118 H Calcium 9.1 05/20/20 11:00 Troponin I < 0.012 Impressions: Cervical Spine CT 05/20/20 00:00 IMPRESSION: Degenerative disc disease. No acute fracture. Chest CT 05/20/20 00:00 IMPRESSION: There is volume loss and fibrotic change noted within the left hemithorax. A superimposed infection would be difficult to exclude. There is also bronchiectasis present. There may be a trace left basilar pneumothorax which could be chronic. There are airspace opacities within the right hemithorax which are concerning for infection. Interval follow-up is recommended to exclude an underlying neoplasm. There are some chronic interstitial changes developing within the background bilaterally, left greater than right. The main pulmonary artery is enlarged, which can be seen with pulmonary artery hypertension. Foot X-Ray 05/20/20 00:00 IMPRESSION: NEGATIVE STUDY OF THE RIGHT FOOT. NO RADIOGRAPHIC EVIDENCE OF ACUTE INJURY. Head CT 05/20/20 00:00 IMPRESSION: NORMAL BRAIN CT WITHOUT CONTRAST. EVIDENCE OF ACUTE STROKE: NO. Chest X-Ray 05/20/20 10:45 IMPRESSION: Extensive cystic opacities in the left chest with prior surgery in the left lung. It is unclear whether there is been in partial pneumonectomy with extensive cystic infection, or whether this fusion is an infectious process within the pleural space. Concerning for multiple small abscesses. Hip X-Ray 05/21/20 15:45 IMPRESSION: SATISFACTORY POSTOPERATIVE LEFT HIP. Assessment & Plan - Diagnosis (1) Bronchiectasis Qualifiers: Bronchiectasis type: uncomplicated Qualified Code(s): J47.9 - Bronchiectasis, uncomplicated Is this a current diagnosis for this admission?: Yes (2) Chronic hypoxemic respiratory failure Is this a current diagnosis for this admission?: Yes (3) Chronic steroid use Is this a current diagnosis for this admission?: Yes (4) Left displaced femoral neck fracture Is this a current diagnosis for this admission?: Yes (5) Leukocytosis Qualifiers: Leukocytosis type: unspecified Qualified Code(s): D72.829 - Elevated white blood cell count, unspecified Is this a current diagnosis for this admission?: Yes - Time Time Spent with patient: 35 or more minutes - Plan Summary Plan Summary: Overall this patient continues to improve. Given her underlying pulmonary status this is quite remarkable. For now we will continue broad-spectrum antibiotics as well as a dose of intravenous steroids. I think increasing activity and rehabilitation for orthopedic routine is indicated. I will follow with you as long as she is hospitalized in an acute care setting.
--- NOTE | 2020-05-23 18:22 | PDOC PROGRESS REPORT ---
Subjective Progress Note for:: 05/23/20 Subjective:: The patient is sitting up comfortably in a chair. Breathing is relaxed. She has mild pain in her hip. Reason For Visit: LEFT HIP FRACTURE Postoperative day #2 status post left hip hemiarthroplasty Physical Exam Vital Signs: Temp Pulse Resp BP Pulse Ox 97.4 F 77 22 H 139/59 H 100 05/23/20 16:00 05/23/20 16:00 05/23/20 16:00 05/23/20 16:00 05/23/20 16:00 Intake & Output 05/22/20 05/23/20 05/24/20 06:59 06:59 06:59 Intake Total 2050 568 Output Total 525 300 Balance 1525 268 Weight 46 kg 48 kg Musculoskeletal exam: PRESENT: other - The surgical incision is intact. There is no evidence of infection. The patient is able to dorsiflex and plantarflex her foot. There is no discomfort with internal or external rotation of the hip. Sensation is intact to touch. Results Laboratory Results: 05/23/20 05:12 05/23/20 05:12 05/23/20 05/23/20 05:12 05:12 WBC 16.1 H RBC 3.41 L Hgb 9.1 L Hct 27.7 L MCV 81 MCH 26.6 L MCHC 32.8 RDW 16.6 H Plt Count 391 Seg Neutrophils % Not Reportable Sodium 135.0 L Potassium 4.4 Chloride 97 L Carbon Dioxide 31 H Anion Gap 7 BUN 25 H Creatinine 0.50 L Est GFR ( Amer) > 60 Glucose 118 H Calcium 9.1 05/20/20 11:00 Troponin I < 0.012 Impressions: Cervical Spine CT 05/20/20 00:00 IMPRESSION: Degenerative disc disease. No acute fracture. Chest CT 05/20/20 00:00 IMPRESSION: There is volume loss and fibrotic change noted within the left hemithorax. A superimposed infection would be difficult to exclude. There is also bronchiectasis present. There may be a trace left basilar pneumothorax which could be chronic. There are airspace opacities within the right hemithorax which are concerning for infection. Interval follow-up is recommended to exclude an underlying neoplasm. There are some chronic interstitial changes developing within the background bilaterally, left greater than right. The main pulmonary artery is enlarged, which can be seen with pulmonary artery hypertension. Foot X-Ray 05/20/20 00:00 IMPRESSION: NEGATIVE STUDY OF THE RIGHT FOOT. NO RADIOGRAPHIC EVIDENCE OF ACUTE INJURY. Head CT 05/20/20 00:00 IMPRESSION: NORMAL BRAIN CT WITHOUT CONTRAST. EVIDENCE OF ACUTE STROKE: NO. Chest X-Ray 05/20/20 10:45 IMPRESSION: Extensive cystic opacities in the left chest with prior surgery in the left lung. It is unclear whether there is been in partial pneumonectomy with extensive cystic infection, or whether this fusion is an infectious process within the pleural space. Concerning for multiple small abscesses. Hip X-Ray 05/21/20 15:45 IMPRESSION: SATISFACTORY POSTOPERATIVE LEFT HIP. Assessment & Plan - Diagnosis (1) Chronic hypoxemic respiratory failure Is this a current diagnosis for this admission?: Yes (2) Chronic steroid use Is this a current diagnosis for this admission?: Yes (3) Left displaced femoral neck fracture Is this a current diagnosis for this admission?: Yes - Time Critical Time spent with patient: Less than 15 minutes Anticipated Discharge Disposition: [facility] Facility Anticipated Discharge Timeframe: when bed available - Plan Summary Plan Summary: POD # 2 s/p hemiarthroplasty The patient is very comfortable. Breathing has improved. She is making good progress. PT WBAT with assist device. Posterior hip precautions. SCD/ ASA for DVT prophylaxis Wound closure performed with surgical glue construct. Patient may shower when clinically feasible Patient stable for discharge from Orthopedic standpoint
[2020-05-23] MEDS: ALBUTEROL SULFATE HFA (90 MCG/PUFF) 8 GM MDI IH SCH (23:24)
[2020-05-23] MEDS: FLUTICASONE/VILANTEROL 200-25 MCG/DOSE IH SCH (23:24)
[2020-05-24] MEDS: PANTOPRAZOLE SODIUM 20 MG TABLET.DR PO SCH (06:06)
[2020-05-24] MEDS: ALBUTEROL SULFATE 0.083% NEB 2.5 MG/3 ML AMPUL NEB SCH (08:54)
[2020-05-24] MEDS: LUBIPROSTONE 24 MCG CAPSULE PO SCH (10:09)
[2020-05-24] MEDS: DRONABINOL 2.5 MG CAPSULE PO SCH (10:10)
[2020-05-24] MEDS: ALBUTEROL SULFATE HFA (90 MCG/PUFF) 8 GM MDI IH SCH ×2 (10:10→13:40)
[2020-05-24] MEDS: METHYLPREDNISOLONE INJ 40 MG/1 ML SDV IV SCH (10:10)
[2020-05-24] MEDS: ASPIRIN 325 MG TABLET PO SCH (10:10)
[2020-05-24] MEDS: DOCUSATE SODIUM 100 MG CAPSULE PO SCH (10:10)
[2020-05-24] MEDS: FLUTICASONE/VILANTEROL 200-25 MCG/DOSE IH SCH (10:10)
[2020-05-24] MEDS: LINEZOLID 600 MG/300 ML RTUPB IV SCH (10:29)
[2020-05-24 11:25] VITALS: BP 103/62
--- NOTE | 2020-05-24 11:32 | PDOC TRANSFER SUMMARY ---
General Admission Date/PCP: 05/20/20 14:24 Admission Date: 05/20/20 Transfer Date: 05/24/20 Accepting Facility: Other (Comments) - [facility] ([facility]) Resuscitation Status: Full Code - Transfer Diagnosis (1) Left displaced femoral neck fracture Is this a current diagnosis for this admission?: Yes (2) Recurrent bacterial pneumonia Is this a current diagnosis for this admission?: Yes (3) Bronchiectasis Is this a current diagnosis for this admission?: Yes (4) Chronic hypoxemic respiratory failure Is this a current diagnosis for this admission?: Yes (5) Dysphagia Is this a current diagnosis for this admission?: Yes (6) Chronic steroid use Is this a current diagnosis for this admission?: Yes (7) Leukocytosis Is this a current diagnosis for this admission?: Yes (8) Accidental fall from bed Is this a current diagnosis for this admission?: Yes - Transfer Medications Home Medications: Albuterol Sulfate [Ventolin 0.083% Neb 2.5 mg/3 mL Ampul] 1 vial NEB BID 05/20/20 Albuterol Sulfate [Ventolin Hfa 8 gm Mdi] 1 puff IH QID 05/20/20 Amitriptyline HCl [Elavil 50 mg Tablet] 50 mg PO QHS 05/20/20 Dronabinol [Marinol 2.5 mg Capsule] 2.5 mg PO DAILY 05/20/20 Fluticasone/Salmeterol [Advair 250-50 Diskus 14 Dose/Diskus] 2 inh IH Q12 05/20/20 Lubiprostone [Amitiza 24 Mcg Capsule] 24 mcg PO BID 05/20/20 Omeprazole 20 mg PO DAILY 05/20/20 Prednisone 10 mg PO DAILY 05/20/20 Transfer Medications: Current Medications Acetaminophen (Tylenol 325 Mg Tablet) 650 mg PO Q4HP PRN PRN Reason: Pain or fever Stop: 06/19/20 19:29 Last Admin: 05/23/20 23:24 Dose: 650 mg Documented by: Albuterol (Ventolin 0.083% Neb 2.5 Mg/3 Ml Ampul) 2.5 mg NEB RTBID ORIANA Stop: 06/20/20 07:59 Last Admin: 05/24/20 08:54 Dose: 2.5 mg Documented by: Albuterol (Ventolin Hfa 8 Gm Mdi) 1 puff IH QID [facility] Stop: 06/19/20 21:59 Last Admin: 05/24/20 10:10 Dose: 1 inhaler Documented by: Albuterol/Ipratropium (Duoneb 3 Ml Ampul) 3 ml NEB RTQ2HP PRN PRN Reason: SHORTNESS OF BREATH Stop: 06/19/20 19:29 Last Admin: 05/21/20 00:23 Dose: 3 ml Documented by: Amitriptyline HCl (Elavil 50 Mg Tablet) 50 mg PO QHS [facility] Stop: 06/19/20 21:59 Last Admin: 05/21/20 21:38 Dose: 50 mg Documented by: Aspirin (Aspirin 325 Mg Tablet) 325 mg PO DAILY [facility] Stop: 06/21/20 09:59 Last Admin: 05/24/20 10:10 Dose: 325 mg Documented by: Dextrose (Dextrose Inj 50% Syringe (25 Gm/50 Ml)) 12.5 gm IV PRN PRN; Protocol PRN Reason: FOR BG 50-69 IN ALERT PATIENT Stop: 06/19/20 18:14 Dextrose (Dextrose Inj 50% Syringe (25 Gm/50 Ml)) 25 gm IV PRN PRN; Protocol PRN Reason: See Label Comments Stop: 06/19/20 18:14 Docusate Sodium (Colace 100 Mg Capsule) 100 mg PO DAILY [facility] Stop: 06/21/20 09:59 Last Admin: 05/24/20 10:10 Dose: 100 mg Documented by: Dronabinol (Marinol 2.5 Mg Capsule) 2.5 mg PO DAILY [facility] Stop: 05/28/20 09:59 Last Admin: 05/24/20 10:10 Dose: 2.5 mg Documented by: Fluticasone/Vilanterol (Breo 200-25 Mcg Ellipta 14 Dose/Dpi) 1 inh IH DAILY [facility] Stop: 06/20/20 09:59 Last Admin: 05/24/20 10:10 Dose: 1 inh Documented by: Glucagon (Glucagen Inj 1 Mg Vial) 1 mg SUBCUT PRN PRN; Protocol PRN Reason: Evaluate for BG < 70 Stop: 06/19/20 18:14 Glucose (Glutose 40% Gel 15 Gm Tube) 15 gm PO PRN PRN; Protocol PRN Reason: For BG 50-69 in Alert Patient Stop: 06/19/20 18:14 Glucose (Glutose 40% Gel 15 Gm Tube) 30 gm PO PRN PRN; Protocol PRN Reason: FOR BG < 50 IN ALERT PATIENT Stop: 06/19/20 18:14 Guaifenesin (Robitussin Syrup 200 Mg/10 Ml Ud Cup) 200 mg PO QIDP PRN PRN Reason: COUGH Stop: 06/21/20 14:50 Levofloxacin/Dextrose (Levaquin Rtu 750 Mg/D5w 150 Ml Premix) 750 mg in 150 mls @ 100 mls/hr IV DAILY [facility] Stop: 05/29/20 10:59 Last Infusion: 05/23/20 19:00 Dose: Infused Documented by: Linezolid (Zyvox Rtu 600 Mg/300 Ml Premixed) 600 mg in 300 mls @ 300 mls/hr IV Q12 [facility] Stop: 05/29/20 21:59 Last Admin: 05/24/20 10:29 Dose: 300 mls/hr, 300 mls/hr Documented by: Lubiprostone (Amitiza 24 Mcg Capsule) 24 mcg PO BID [facility] Stop: 06/20/20 09:59 Last Admin: 05/24/20 10:09 Dose: 24 mcg Documented by: Methylprednisolone Sodium Succinate (Solu-Medrol Inj/Pf 40 Mg/1 Ml Sdv) 40 mg IV DAILY [facility] Stop: 06/22/20 09:59 Last Admin: 05/24/20 10:10 Dose: 40 mg Documented by: Ondansetron HCl (Zofran Inj/Pf 4 Mg/2 Ml Sdv) 4 mg IV Q4HP PRN PRN Reason: FOR NAUSEA/VOMITING Stop: 06/19/20 19:29 Ondansetron HCl (Zofran Odt 4 Mg Tablet) 4 mg PO Q4HP PRN PRN Reason: FOR NAUSEA/VOMITING Stop: 06/19/20 19:29 Oxycodone HCl (Oxy-Ir 5 Mg Tablet) 5 mg PO Q4HP PRN PRN Reason: PAIN UNRELIEVED BY TRAMADOL Stop: 05/27/20 19:23 Last Admin: 05/21/20 18:52 Dose: 5 mg Documented by: Oxycodone/Acetaminophen (Percocet 5-325 Mg Tablet) 1 tab PO Q4HP PRN PRN Reason: Moderate to severe pain Stop: 05/27/20 19:29 Last Admin: 05/21/20 21:45 Dose: 1 tab Documented by: Pantoprazole Sodium (Protonix [address] Tablet) 20 mg PO Q6AM [facility]IA[facility] Stop: 06/20/20 05:59 Last Admin: 05/24/20 06:06 Dose: 20 mg Documented by: - Allergies Allergies/Adverse Reactions: codeine Allergy (Verified 05/20/20 11:45) - Diet/Activity Discharge Diet: Regular Hospital Course Hospital Course: H&P per Dr. Verma: QUETA RAJAN is a 84 year old female with past medical history significant for chronic bronchiectasis followed by Dr. Beltran in pulmonology who presents with a 1 day history of severe left hip pain after she tried to get out of bed and tripped, falling onto her left hip and causing a left femoral neck fracture as seen on x-ray on admission. Patient was brought to ED by EMS and was evaluated by orthopedic surgery. They requested admission to medicine service and are planning surgery fix fractured hip on 05/21. Patient is n.p.o. after midnight. Pulmonology was consulted by ED anesthesia was also notified of the complicated nature of the patient's pulmonary disease. All services in agreement that patient can proceed with surgery as benefits of surgery outweigh the risk. Patient is on 10 mg prednisone daily for her bronchiectasis and will provide 50 mg hydrocortisone preoperatively in order to provide appropriate stress response to surgery. Course: (1) Left displaced femoral neck fracture POD #3 Left hip hemiarthroplasty by Dr. Holm Orthopedic surgery consulted; cleared for discharge from orthopedic perspective. Post op DVT prophylaxis per orthopedic; aspirin 325 mg daily x 30 days Analgesics as needed; paper Rx provided for Percocet. Additional analgesics at discretion of provider at LTAC. PT/OT (2) Recurrent bacterial pneumonia Findings on CT chest concerning for pneumonia though picture is very unclear due to severe chronic lung damage Blood cultures have no growth at 72 hours Sputum cultures pending; preliminary shows gram positive cocci in pairs Patient is provided supplemental oxygen as needed maintain saturations greater than 89%. Pulmonology was consulted. Continue Levaquin; day #4. Continue Zyvox; day #3 Supported w/ scheduled and as needed nebulizer treatments. Pulmonary toilet is encouraged with incentive spirometer, flutter valve, early ambulation. (3) Bronchiectasis 4 L nasal cannula chronically Follows with Dr. Beltran in pulmonology Dr. Guajardo and pulmonology consulted here Evaluation and management as above. (4) Chronic hypoxemic respiratory failure Chronically on 4 L nasal cannula at home Continue with supplemental oxygen here with goal 92% or greater ABG shows improvement. Evaluation and management as above. (5) Dysphagia Speech therapy consulted aspiration risk is secondary to respiratory distress and increased work of breathing. Recommends mechanical soft diet to decrease energy expenditure. Small bites/meals. Aspiration precautions. (6) Chronic steroid use On chronic 10 mg prednisone daily Provide 50 mg hydrocortisone preoperatively for adequate stress response of surgery Discussed with pulmonology; recommends continuing stress dose steroids. Received Solu-Medrol 40 mg daily while admitted. Discharged on p.o. prednisone 40 mg daily; resume home dose prednisone therapy upon completion. (7) Leukocytosis Trending down; most recent WBC 16.1 Multifactorial secondary to Hip fx w/ repair, pneumonia, and stress dose steroids. Cultures and antibiotics as above. (8) Accidental fall from bed As above Physical Exam Vital Signs: Temp Pulse Resp BP Pulse Ox 97.5 F 100 14 126/58 H 100 05/24/20 07:22 05/24/20 08:54 05/24/20 08:54 05/24/20 07:22 05/24/20 08:54 Intake & Output 05/23/20 05/24/20 05/25/20 06:59 06:59 06:59 Intake Total 568 950 Output Total 300 1000 Balance 268 -50 Weight 48 kg 48.55 kg General appearance: PRESENT: no acute distress, cooperative, thin, well- developed Head exam: PRESENT: atraumatic, normocephalic Eye exam: PRESENT: conjunctiva pink, EOMI, PERRLA. ABSENT: scleral icterus Mouth exam: PRESENT: moist, tongue midline Respiratory exam: PRESENT: crackles - L>R, symmetrical, tachypnea, unlabored, other - supplemental oxygen via NC at 5lpm. ABSENT: rales, rhonchi, wheezes Cardiovascular exam: PRESENT: RRR. ABSENT: diastolic murmur, rubs, systolic murmur Pulses: PRESENT: normal dorsalis pedis pul Vascular exam: PRESENT: normal capillary refill GI/Abdominal exam: PRESENT: normal bowel sounds, soft. ABSENT: distended, guarding, mass, organolmegaly, rebound, tenderness Rectal exam: PRESENT: deferred Gentrourinary exam: PRESENT: indwelling catheter Extremities exam: PRESENT: full ROM, tenderness - left. ABSENT: calf tenderness, clubbing, pedal edema Neurological exam: PRESENT: alert, awake, oriented to person, oriented to place, oriented to time, oriented to situation, CN II-XII grossly intact. ABSENT: motor sensory deficit Psychiatric exam: PRESENT: appropriate affect, normal mood. ABSENT: homicidal ideation, suicidal ideation Skin exam: PRESENT: dry, intact, warm. ABSENT: cyanosis, rash Results Laboratory Results: 05/23/20 05:12 05/23/20 05:12 05/20/20 11:00 Troponin I < 0.012 Impressions: Cervical Spine CT 05/20/20 00:00 IMPRESSION: Degenerative disc disease. No acute fracture. Chest CT 05/20/20 00:00 IMPRESSION: There is volume loss and fibrotic change noted within the left hemithorax. A superimposed infection would be difficult to exclude. There is also bronchiectasis present. There may be a trace left basilar pneumothorax which could be chronic. There are airspace opacities within the right hemithorax which are concerning for infection. Interval follow-up is recommended to exclude an underlying neoplasm. There are some chronic interstitial changes developing within the background bilaterally, left greater than right. The main pulmonary artery is enlarged, which can be seen with pulmonary artery hypertension. Foot X-Ray 05/20/20 00:00 IMPRESSION: NEGATIVE STUDY OF THE RIGHT FOOT. NO RADIOGRAPHIC EVIDENCE OF ACUTE INJURY. Head CT 05/20/20 00:00 IMPRESSION: NORMAL BRAIN CT WITHOUT CONTRAST. EVIDENCE OF ACUTE STROKE: NO. Chest X-Ray 05/20/20 10:45 IMPRESSION: Extensive cystic opacities in the left chest with prior surgery in the left lung. It is unclear whether there is been in partial pneumonectomy with extensive cystic infection, or whether this fusion is an infectious process within the pleural space. Concerning for multiple small abscesses. Hip X-Ray 05/21/20 15:45 IMPRESSION: SATISFACTORY POSTOPERATIVE LEFT HIP. Plan Discharge Plan: Patient is discharged to [facility] for pulmonary and physical rehab services. Time Spent: Greater than 30 Minutes
[2020-05-24] MEDS: LEVOFLOXACIN 750 MG/D5W RTU 750 MG/150 ML RTUPB IV SCH (12:01)
--- NOTE | 2020-05-24 15:48 | PDOC PROGRESS REPORT ---
Subjective Progress Note for:: 05/24/20 Subjective:: This patient is seen in follow-up for severe bronchiectasis. In the interim she has continued to improve. She is now on nasal cannula oxygen. She is still also receiving broad-spectrum antibiotics which I think is appropriate given her underlying bronchiectasis. Her is in the room and transfer to a rehabilitation facility closer to home is in the works. I agree that this is the appropriate next step. She will obviously need oxygen supplementation as well as continued antibiotic therapy and anticoagulant therapy per the orthopedic surgeon. Reason For Visit: LEFT HIP FRACTURE Physical Exam Vital Signs: Temp Pulse Resp BP Pulse Ox 97.8 F 98 16 103/62 98 05/24/20 10:43 05/24/20 10:43 05/24/20 10:43 05/24/20 10:43 05/24/20 10:43 Intake & Output 05/23/20 05/24/20 05/25/20 06:59 06:59 06:59 Intake Total 568 950 240 Output Total 300 1000 400 Balance 268 -50 -160 Weight 48 kg 48.55 kg 48.55 kg Exam: Her physical exam today is largely unchanged she continues to have diffuse rhonchi throughout all lung jane. Results Laboratory Results: 05/23/20 05:12 05/23/20 05:12 05/20/20 11:00 Troponin I < 0.012 Impressions: Cervical Spine CT 05/20/20 00:00 IMPRESSION: Degenerative disc disease. No acute fracture. Chest CT 05/20/20 00:00 IMPRESSION: There is volume loss and fibrotic change noted within the left hemithorax. A superimposed infection would be difficult to exclude. There is also bronchiectasis present. There may be a trace left basilar pneumothorax which could be chronic. There are airspace opacities within the right hemithorax which are concerning for infection. Interval follow-up is recommended to exclude an underlying neoplasm. There are some chronic interstitial changes developing within the background bilaterally, left greater than right. The main pulmonary artery is enlarged, which can be seen with pulmonary artery hypertension. Foot X-Ray 05/20/20 00:00 IMPRESSION: NEGATIVE STUDY OF THE RIGHT FOOT. NO RADIOGRAPHIC EVIDENCE OF ACUTE INJURY. Head CT 05/20/20 00:00 IMPRESSION: NORMAL BRAIN CT WITHOUT CONTRAST. EVIDENCE OF ACUTE STROKE: NO. Chest X-Ray 09/20/20 10:45 IMPRESSION: Extensive cystic opacities in the left chest with prior surgery in the left lung. It is unclear whether there is been in partial pneumonectomy with extensive cystic infection, or whether this fusion is an infectious process within the pleural space. Concerning for multiple small abscesses. Hip X-Ray 05/21/20 15:45 IMPRESSION: SATISFACTORY POSTOPERATIVE LEFT HIP. Assessment & Plan - Diagnosis (1) Bronchiectasis Qualifiers: Bronchiectasis type: uncomplicated Qualified Code(s): J47.9 - Bronchiectasis, uncomplicated Is this a current diagnosis for this admission?: Yes (2) Chronic hypoxemic respiratory failure Is this a current diagnosis for this admission?: Yes (3) Chronic steroid use Is this a current diagnosis for this admission?: Yes (4) Left displaced femoral neck fracture Is this a current diagnosis for this admission?: Yes (5) Leukocytosis Qualifiers: Leukocytosis type: unspecified Qualified Code(s): D72.829 - Elevated white blood cell count, unspecified Is this a current diagnosis for this admission?: Yes - Time Time Spent with patient: 35 or more minutes - Plan Summary Plan Summary: As noted above transfer to a rehabilitation facility is imminent. I agree that this is the appropriate next step. I would continue low flow O2 as needed to supplement her oxygen saturations, as well as broad-spectrum antibiotic coverage. Anticoagulation should be per the orthopedic surgeon. Pulmonary care will now revert to her java application engineer in [place] Dr. Shipley.
== END 2020-05-24 16:17 | disposition other institution (70) | DRG 469 ==
LOC: ER 10:41 → EH 14:24 → 4S 17:36
PROVIDERS: ADMIT Internal Medicine; ATTEND Registered Nurse
PROC: 0SRB02A Replacement of Left Hip Joint with Metal on Polyethylene Synthetic Substitute, Uncemented, Open Approach (ICD-10-PCS; principal; 2020-05-20)
DX: S72.032A Displaced midcervical fracture of left femur, initial encounter for closed fracture (principal); J15.9 Unspecified bacterial pneumonia; J96.11 Chronic respiratory failure with hypoxia; W06.XXXA Fall from bed, initial encounter; Y92.003 Bedroom of unspecified non-institutional (private) residence as the place of occurrence of the external cause; R13.10 Dysphagia, unspecified; J47.9 Bronchiectasis, uncomplicated; K21.9 Gastro-esophageal reflux disease without esophagitis; Z90.2 Acquired absence of lung [part of]; Z79.890 Hormone replacement therapy; Z88.6 Allergy status to analgesic agent; Z99.81 Dependence on supplemental oxygen; Z03.818 Encounter for observation for suspected exposure to other biological agents ruled out
CPT/HCPCS: 01210; 36415; 36600; 51702; 70450; 71045; 71250; 72125; 80048; 80053; 81001; 82803; 82962; 83605; 83735; 84100; 84484; 85025; 85027; 85610; 87040; 87070; 87077; 87205; 87635; 93005; 93010; 94640; 94667; 94799; 96374; 96375; 99140; 99285; A9270-GY; C1776; C9290; C9803; J0456; J0690; J0696; J1170; J1644; J1956; J2020; J2250; J2405; J2704; J2920; J3010; J3370; J3490; J7030; J7060; J7512; J7613